=== PATIENT | female | born 1985 | race African-American/Black ===

== ENCOUNTER → 2016-11-16 | Outpatient (CLI) | payer OTHER ==
[2016-11-16 18:32] LABS: BASO % 0.5 % (0.0-1.0); EOS # 0.1 K/mm3 (0.0-0.50); EOS % 0.8 % (0.0-3.0); LARGE UNSTAINED CELL # 0.2 K/mm3 (0.0-0.4); LARGE UNSTAINED CELL % 2.6 % (0.0-4.0); LYMPH # 1.7 K/mm3 (1.5-4.5); LYMPH % 22.2 % (24.0-44.0); MEAN CORPUSCULAR HEMOGLOBIN 30.1 pg (27.0-33.0); MEAN CORPUSCULAR HGB CONC 32.4 g/dl (32.0-36.5); MONO # 0.7 K/mm3 (0.0-0.8); MONO % 8.7 % (0.0-5.0); NEUTROPHILS % 65.2 % (36.0-66.0); PLATELET COUNT, AUTOMATED 311 k/mm3 (150-450); RED CELL DISTRIBUTION WIDTH 11.9 % (11.5-14.5); WHITE BLOOD COUNT 7.7 K/mm3 (4.0-10.0)
[2016-11-18 11:00] LABS: HBsAg Prenatal NEGATIVE (NEGATIVE)
[2016-11-18 11:09] LABS: HIV SCREEN CENTAUR NEGATIVE (NEGATIVE)
== END ==
LOC: M WUC 13:04
PROVIDERS: ATTEND Specialist
DX: Z34.81 Encounter for supervision of other normal pregnancy, first trimester (principal)

== ENCOUNTER → 2017-02-06 | Outpatient (CLI) | payer OTHER ==
--- NOTE | 2017-02-07 03:50 | REP ---
Clinical: Anatomical evaluation. Comparison: None . Findings: Examination demonstrates a single live intrauterine in breech presentation. motion is identified by technologist. Placenta is noted posteriorly and grade zero without evidence for placenta previa or abruption. Amniotic fluid volume is normal. Cervix measures 4.1 cm in length and appears closed. No evidence for nuchal cord. Gestational age by current measurements 18 weeks 3 days with NABEEL 07/07/2017 . FHR equals 150 beats per minute. BPD 4.1 cm 18 weeks 3 days HC 15.6 cm 18 weeks 4 days AC 13.3 cm 18 weeks 6 days FL 2.8 cm 18 weeks for the HL 2.9 cm 19 weeks 2 days HC/AC ratio 1.17 Estimated weight 250 grams ( 54th percentile). Anatomical assessment demonstrates normal structures including cranium, choroid plexus, cavum, cerebellum/posterior fossa, nose/lips , lungs, four-chamber heart, diaphragm, stomach, cord insertion/three-vessel cord, kidneys/bladder, spine, and extremities. Limited evaluation of the facial profile and cardiac ventricular outflow tracts noted. Impression: 1. Single live intrauterine in breech presentation. 2. Anatomical limitations as described above may warrant reevaluation and follow-up. Remainder examination appears normal. Signed by Twan Escobedo MD 02/07/2017 03:42 A
== END ==
LOC: M SMT 12:59
PROVIDERS: ATTEND Specialist
DX: Z34.82 Encounter for supervision of other normal pregnancy, second trimester (principal); Z3A.19 19 weeks gestation of pregnancy

== ENCOUNTER → 2017-03-08 | Outpatient (CLI) | payer OTHER ==
[~2017-03-08] MED LIST: ALBU83IN INH; MOTR200T44 PO; PRENTAB9 PO; TYLE325T5 PO
--- NOTE | 2017-03-08 17:10 | REP ---
OB ULTRASOUND: Real-time sonographic evaluation of the gravid uterus is performed using transabdominal technique. There is a single living intrauterine gestation. The estimated gestational age is 22 weeks 5 days based on the first ultrasound. EDC 07/07/2017. Today's measurements indicate appropriate growth. BPD 52 mm = 21 weeks 5 days, at the 23rd percentile. HC 197 mm = 21 weeks 6 days, at the 26th percentile. AC 176 mm = 22 weeks 4 day, at the 46th percentile. Femur length 40 mm = 22 weeks 5 days, at the 50th percentile. HC/AC ratio 1.12 within normal range of 1.04-1.23. Estimated weight 510 grams at the 39th percentile. Cervix is closed measures and 3.3 cm in length. heart rate 153 beats per minute. SEEN/GROSSLY UNREMARKABLE Lateral ventricles Yes Posterior fossa Yes Upper lip Yes Four-chamber heart Yes LVOT Yes RVOT Yes Stomach Yes Cord insertion Yes Three vessel cord Yes Kidneys Yes Bladder Yes Spine Yes position: Breach. Placenta: Posterior and grade 1 with no previa or abruption. Amniotic fluid: Within normal limits. Signed by Conrad Irwin MD 03/09/2017 03:49 P
== END ==
LOC: M SMT 13:02
PROVIDERS: ATTEND Advanced Practice Midwife
DX: Z36 Encounter for antenatal screening of mother (principal)

== ENCOUNTER → 2017-05-10 | Outpatient (CLI) | payer OTHER ==
[2017-05-10 13:55] LABS: BASO % 0.4 % (0.0-1.0); EOS # 0.1 K/mm3 (0.0-0.50); EOS % 0.8 % (0.0-3.0); LARGE UNSTAINED CELL # 0.2 K/mm3 (0.0-0.4); LARGE UNSTAINED CELL % 1.9 % (0.0-4.0); LYMPH # 1.5 K/mm3 (1.5-4.5); LYMPH % 13.8 % (24.0-44.0); MEAN CORPUSCULAR HEMOGLOBIN 30.4 pg (27.0-33.0); MEAN CORPUSCULAR HGB CONC 33.6 g/dl (32.0-36.5); MEAN CORPUSCULAR VOLUME 90.5 fl (80.0-96.0); MONO # 0.8 K/mm3 (0.0-0.8); MONO % 7.5 % (0.0-5.0); NEUTROPHILS # 8.4 K/mm3 (1.8-7.7); NEUTROPHILS % 75.5 % (36.0-66.0); PLATELET COUNT, AUTOMATED 360 k/mm3 (150-450); RED CELL DISTRIBUTION WIDTH 12.5 % (11.5-14.5); WHITE BLOOD COUNT 11.1 K/mm3 (4.0-10.0)
== END ==
LOC: M SMT 08:34
PROVIDERS: ATTEND Advanced Practice Midwife
DX: Z34.83 Encounter for supervision of other normal pregnancy, third trimester (principal)

== ENCOUNTER → 2017-06-09 | Outpatient (REF) | payer OTHER | LOC: M LAB REF 17:04 | PROVIDERS: ATTEND Advanced Practice Midwife | DX: Z34.83 Encounter for supervision of other normal pregnancy, third trimester (principal) ==

== ENCOUNTER → 2019-04-29 | Outpatient (REF) | payer OTHER ==
[2019-04-29 16:08] LABS: ALBUMIN 3.5 GM/DL (3.2-5.2); ALT/SGPT 15 U/L (12-78); BILIRUBIN,TOTAL 0.3 MG/DL (0.2-1.0); BLOOD UREA NITROGEN 11 MG/DL (7-18); CALCIUM LEVEL 9.3 MG/DL (8.5-10.1); CARBON DIOXIDE LEVEL 28 MEQ/L (21-32); CHLORIDE LEVEL 107 MEQ/L (98-107); CREATININE FOR GFR 0.72 MG/DL (0.55-1.30); GLOMERULAR FILTRATION RATE > 60.0 (>60); GLUCOSE, FASTING 90 MG/DL (70-100); POTASSIUM SERUM 4.1 MEQ/L (3.5-5.1); RHEUMATOID FACTOR QUANT 39.4 IU/ML (<15.0); SODIUM LEVEL 143 MEQ/L (136-145); TOTAL PROTEIN 7.3 GM/DL (6.4-8.2)
[2019-04-29 16:53] LABS: HIV 1&2 SCREEN CENTAUR NEGATIVE (NEGATIVE)
[2019-05-02 00:07] LABS: ANTINUCLEAR ANTIBODIES DIRECT Negative (Negative); CYCLIC CITRULLINATED PEPTIDE > 250 units (0-19)
== END ==
LOC: M SFHCPLAZ 14:03
PROVIDERS: ATTEND Family Medicine
DX: M25.50 Pain in unspecified joint (principal); M25.40 Effusion, unspecified joint; Z11.3 Encounter for screening for infections with a predominantly sexual mode of transmission

== ENCOUNTER → 2019-08-09 | Outpatient (REF) | payer OTHER ==
[2019-08-09 12:57] LABS: HEPATITIS B SURFACE ANTIBODY POSITIVE (POSITIVE); HEPATITIS B SURFACE ANTIGEN NEGATIVE (NEGATIVE)
== END ==
LOC: M SFHCPLAZ 10:04
PROVIDERS: ATTEND Family Medicine
DX: M05.79 Rheumatoid arthritis with rheumatoid factor of multiple sites without organ or systems involvement (principal)
CPT/HCPCS: 36415; 86706; 87340; G0472

== ENCOUNTER → 2019-09-20 | Outpatient (REF) | payer OTHER ==
[2019-09-20 12:08] LABS: BASO # 0.1 10^3/uL (0.0-0.2); BASO % 0.8 % (0.0-1.0); EOS # 0.1 10^3/uL (0.0-0.5); EOS % 1.7 % (0.0-3.0); HEMOGLOBIN 13.7 g/dl (12.0-15.5); LYMPH # 1.5 10^3/uL (1.5-5.0); MEAN CORPUSCULAR HEMOGLOBIN 29.2 pg (27.0-33.0); MEAN CORPUSCULAR HGB CONC 31.1 g/dl (32.0-36.5); MEAN CORPUSCULAR VOLUME 93.8 fl (80.0-96.0); MONO # 0.6 10^3/uL (0.0-0.8); MONO % 10.4 % (0.0-5.0); NEUTROPHILS # 3.8 10^3/uL (1.5-8.5); NEUTROPHILS % 62.9 % (36.0-66.0); PLATELET COUNT, AUTOMATED 342 10^3/uL (150-450); RED BLOOD COUNT 4.69 10^6/uL (4.00-5.40)
[2019-09-20 12:19] LABS: ALBUMIN 3.7 GM/DL (3.2-5.2); ALT/SGPT 14 U/L (12-78); BILIRUBIN,TOTAL 0.2 MG/DL (0.2-1.0); BLOOD UREA NITROGEN 16 MG/DL (7-18); C REACTIVE PROTEIN QUANTITATIV 0.32 MG/DL (0.00-0.30); CARBON DIOXIDE LEVEL 27 MEQ/L (21-32); CHLORIDE LEVEL 111 MEQ/L (98-107); CREATININE FOR GFR 0.69 MG/DL (0.55-1.30); GLOMERULAR FILTRATION RATE > 60.0 (>60); GLUCOSE, FASTING 91 MG/DL (70-100); POTASSIUM SERUM 4.5 MEQ/L (3.5-5.1); RHEUMATOID FACTOR QUANT 64.6 IU/ML (<15.0); SODIUM LEVEL 142 MEQ/L (136-145); TOTAL PROTEIN 7.8 GM/DL (6.4-8.2)
[2019-09-20 12:38] LABS: ERYTHROCYTE SEDIMENTATION RATE 9 mm/hr (0-20)
[2019-09-20 13:39] LABS: CHLAMYDIA DNA AMPLIFICATION NEGATIVE (NEGATIVE); GC DNA AMPLIFICATION NEGATIVE (NEGATIVE)
== END ==
LOC: M SFHCPLAZ 08:53
PROVIDERS: ATTEND Family Medicine
DX: M05.79 Rheumatoid arthritis with rheumatoid factor of multiple sites without organ or systems involvement (principal); Z11.3 Encounter for screening for infections with a predominantly sexual mode of transmission

== ENCOUNTER → 2019-10-04 | Outpatient (REF) | payer OTHER ==
[2019-10-04 18:10] LABS: BASO % 0.7 % (0.0-1.0); EOS # 0.1 10^3/uL (0.0-0.5); EOS % 1.2 % (0.0-3.0); HEMATOCRIT 40.6 % (36.0-47.0); HEMOGLOBIN 12.9 g/dl (12.0-15.5); LYMPH # 1.6 10^3/uL (1.5-5.0); LYMPH % 27.1 % (24.0-44.0); MEAN CORPUSCULAR HEMOGLOBIN 29.5 pg (27.0-33.0); MEAN CORPUSCULAR HGB CONC 31.8 g/dl (32.0-36.5); MEAN CORPUSCULAR VOLUME 92.7 fl (80.0-96.0); MONO # 0.5 10^3/uL (0.0-0.8); MONO % 8.5 % (0.0-5.0); NEUTROPHILS # 3.7 10^3/uL (1.5-8.5); NEUTROPHILS % 62.3 % (36.0-66.0); PLATELET COUNT, AUTOMATED 341 10^3/uL (150-450); RED BLOOD COUNT 4.38 10^6/uL (4.00-5.40); WHITE BLOOD COUNT 5.9 10^3/uL (4.0-10.0)
[2019-10-04 18:21] LABS: ALT/SGPT 17 U/L (12-78); BILIRUBIN,TOTAL 0.3 MG/DL (0.2-1.0); BLOOD UREA NITROGEN 10 MG/DL (7-18); C REACTIVE PROTEIN QUANTITATIV 0.49 MG/DL (0.00-0.30); CALCIUM LEVEL 9.6 MG/DL (8.5-10.1); CARBON DIOXIDE LEVEL 27 MEQ/L (21-32); CHLORIDE LEVEL 106 MEQ/L (98-107); CREATININE FOR GFR 0.64 MG/DL (0.55-1.30); GLOMERULAR FILTRATION RATE > 60.0 (>60); GLUCOSE, FASTING 74 MG/DL (70-100); POTASSIUM SERUM 3.9 MEQ/L (3.5-5.1); SODIUM LEVEL 142 MEQ/L (136-145)
[2019-10-04 18:44] LABS: ERYTHROCYTE SEDIMENTATION RATE 14 mm/hr (0-20)
[2019-10-08 00:06] LABS: ANA (HEP2) Positive (.); HEPATITIS B CORE ANTIBODY IGG Negative (Negative)
== END ==
LOC: M SFHCRHEU 15:55
PROVIDERS: ATTEND Internal Medicine
DX: M05.79 Rheumatoid arthritis with rheumatoid factor of multiple sites without organ or systems involvement (principal)

== ENCOUNTER → 2020-01-15 | Outpatient (CLI) | payer OTHER ==
[~2020-01-15] MED LIST changes: +ACET-683 PO; +FOLI1TAB11 PO; +METH2.5T48 PO; +ONDA-83 PO; +POTA10TA17 PO; +PRED10TA2 PO; +PRED5TA PO; +PROTPAK PO; +VENTAER INH
[2020-01-15 12:30] LABS: BASO % 0.2 % (0.0-1.0); HEMATOCRIT 35.7 % (36.0-47.0); HEMOGLOBIN 11.8 g/dl (12.0-15.5); LYMPH # 0.6 10^3/uL (1.5-5.0); MEAN CORPUSCULAR HEMOGLOBIN 29.9 pg (27.0-33.0); MEAN CORPUSCULAR HGB CONC 33.1 g/dl (32.0-36.5); MEAN CORPUSCULAR VOLUME 90.6 fl (80.0-96.0); MONO # 0.5 10^3/uL (0.0-0.8); NEUTROPHILS # 14.6 10^3/uL (1.5-8.5); NEUTROPHILS % 92.1 % (36.0-66.0); PLATELET COUNT, AUTOMATED 460 10^3/uL (150-450); RED BLOOD COUNT 3.94 10^6/uL (4.00-5.40); WHITE BLOOD COUNT 15.8 10^3/uL (4.0-10.0)
[2020-01-15 12:57] LABS: ALBUMIN 2.9 GM/DL (3.2-5.2); ALT/SGPT 19 U/L (12-78); AMYLASE 24 U/L (25-115); BILIRUBIN,TOTAL 0.6 MG/DL (0.2-1.0); BLOOD UREA NITROGEN 5 MG/DL (7-18); CALCIUM LEVEL 8.6 MG/DL (8.5-10.1); CARBON DIOXIDE LEVEL 25 MEQ/L (21-32); CHLORIDE LEVEL 102 MEQ/L (98-107); GLOMERULAR FILTRATION RATE > 60.0 (>60); GLUCOSE, FASTING 96 MG/DL (70-100); POTASSIUM SERUM 2.9 MEQ/L (3.5-5.1); SODIUM LEVEL 137 MEQ/L (136-145); TOTAL PROTEIN 7.8 GM/DL (6.4-8.2)
--- NOTE | 2020-01-16 02:48 | REP ---
Clinical: Abdominal pain and hematuria. Fever. Nausea. Technique: Supine and upright views of the abdomen and pelvis. Findings: Supine and upright views of the abdomen and pelvis demonstrate nonspecific bowel gas pattern. No organomegaly. No obvious abnormal calcifications. Skeletal structures are intact. Impression: Normal nonspecific abdominal radiographs. Electronically Signed by Twan Escobedo MD 01/16/2020 02:39 A
== END ==
LOC: M WUC 09:58
PROVIDERS: ATTEND Physician Assistant
DX: R11.0 Nausea (principal); R31.9 Hematuria, unspecified; R50.9 Fever, unspecified
CPT/HCPCS: 36415; 74019; 80053; 82150; 85025; 87086; U0003

== ENCOUNTER → 2020-01-15 | Outpatient (CLI) | payer OTHER ==
--- NOTE | 2020-01-16 02:58 | REP ---
Clinical: Multifocal rheumatoid arthritis with positive rheumatoid factor. Technique: PA and lateral. Comparison: None. Findings: Bilateral lower lobe infiltrates suggest acute / chronic pneumonia and atelectasis. No effusion. No pneumothorax. Skeletal structures are intact. Mediastinum and cardiac silhouette are normal. Impression: Moderate bilateral lower lobe infiltrates. Follow-up to resolution is recommended. Electronically Signed by Twan Escobedo MD 01/16/2020 02:49 A
== END ==
LOC: M WUC 10:08
PROVIDERS: ATTEND Family Medicine
DX: M05.79 Rheumatoid arthritis with rheumatoid factor of multiple sites without organ or systems involvement (principal); R91.8 Other nonspecific abnormal finding of lung field

== ENCOUNTER 2020-01-16 09:06 | Inpatient (IN) | payer OTHER ==
[~2020-01-16] VITALS: Ht 165.1 cm; Wt 75.0 kg
[2020-01-16] MEDS: FOLIC ACID 1 MG TAB PO SCH (09:00)
[~2020-01-16 09:06] MED LIST changes: -ACET-683 PO; -FOLI1TAB11 PO; -METH2.5T48 PO; -ONDA-83 PO; -POTA10TA17 PO; -PRED10TA2 PO; -PRED5TA PO; -PROTPAK PO; -VENTAER INH
[2020-01-16] MEDS ORDERED: METH2.5T48 PO (09:16)
[2020-01-16] MEDS ORDERED: POTA10TA17 PO (09:16)
[2020-01-16] MEDS ORDERED: ONDA-83 PO (09:16)
[2020-01-16] MEDS ORDERED: ONDANSETRON 4MG/2ML VIAL IV ONE (10:15)
[2020-01-16] MEDS ORDERED: NS 1,000 ML IV ONE (10:45)
[2020-01-16] MEDS ORDERED: cefTRIAXone SOD 1 GM in D5W MINI-BAG PLUS 50 ML IV ONE (10:45)
[2020-01-16 10:48] LABS: BASO % 0.2 % (0.0-1.0); HEMOGLOBIN 11.3 g/dl (12.0-15.5); LYMPH # 0.8 10^3/uL (1.5-5.0); LYMPH % 4.6 % (24.0-44.0); MEAN CORPUSCULAR HEMOGLOBIN 28.9 pg (27.0-33.0); MEAN CORPUSCULAR HGB CONC 32.3 g/dl (32.0-36.5); MEAN CORPUSCULAR VOLUME 89.5 fl (80.0-96.0); MONO # 0.4 10^3/uL (0.0-0.8); MONO % 2.4 % (0.0-5.0); NEUTROPHILS # 16.9 10^3/uL (1.5-8.5); NEUTROPHILS % 92.3 % (36.0-66.0); PLATELET COUNT, AUTOMATED 477 10^3/uL (150-450); RED BLOOD COUNT 3.91 10^6/uL (4.00-5.40); WHITE BLOOD COUNT 18.3 10^3/uL (4.0-10.0)
[2020-01-16 11:05] LABS: BLOOD UREA NITROGEN 3 MG/DL (7-18); CALCIUM LEVEL 8.9 MG/DL (8.5-10.1); CARBON DIOXIDE LEVEL 29 MEQ/L (21-32); CHLORIDE LEVEL 101 MEQ/L (98-107); CREATININE FOR GFR 0.56 MG/DL (0.55-1.30); GLOMERULAR FILTRATION RATE > 60.0 (>60); GLUCOSE, FASTING 95 MG/DL (70-100); POTASSIUM SERUM 3.5 MEQ/L (3.5-5.1); SODIUM LEVEL 139 MEQ/L (136-145)
[2020-01-16] MEDS ORDERED: ALBUTEROL 90 MCG/ACT 8GM HFA INHALER INH ONE (12:30)
[2020-01-16] MEDS ORDERED: ONDANSETRON 4MG/2ML VIAL IV PRN (14:15)
[2020-01-16] MEDS ORDERED: IPRATROPIUM 0.5MG/ALBUTEROL 2.5MG INH SOL UD 3ML (DUONEB)(J7620) NEB PRN (14:15)
[2020-01-16] MEDS ORDERED: ACET-683 PO (14:21)
[2020-01-16] MEDS ORDERED: FOLI1TAB11 PO (14:21)
[2020-01-16] MEDS ORDERED: VENTAER INH (14:21)
[2020-01-16] MEDS ORDERED: PRED5TA PO (14:21)
--- NOTE | 2020-01-16 15:05 | HPEPDOC ---
[facility] Medical History & Physical Date of Admission January 16, 2020 Date of Service: January 16, 2020 Primary Care Physician: JENNI ORTIZ MD Attending Physician: SHANTE RICE MD History and Physical CHIEF COMPLAINT: fever, SOB, malaise HISTORY OF PRESENT ILLNESS: Darling Mohan is a 34 YO F with history of asthma and rheumatoid arthritis (on Methotrexate) who presents to the ED with 3 days of nausea, vomiting, fevers, chills, shortness of breath. She reports that her symptoms started with malaise and overall feeling of "achiness" then progressed to shortness of breath, dry cough and fevers. She states that she has been vomiting continuously during this time and unable to keep any food down. She has not had any recent illnesses and has reportedly been self-isolating in her home. Her does work outside the home and she has 2 young children in the house. She went to urgent care yesterday and underwent group B strep screen which was negative, chest x-ray, which was found to have bilateral infiltrates, and rapid flu screen which was also negative. A COVID-19 test was done and is pending. She was given 1 dose of IV Rocephin. Notably, she was found to have blood in her urine. She denies any urinary symptoms at this time. PAST MEDICAL HISTORY: Asthma. Rheumatolid Arthritis (on Methotrexate, follows with Rheumatology) Depression. Anxiety. PAST SURGICAL HISTORY: None SOCIAL HISTORY: Former cigarette smoker, now smokes CBD oil. Occasional alcohol use Denies any other drugs. Lives at home with her boyfriend and 2 children. FAMILY HISTORY: Father: alive, No known medical problems Mother: alive, HLD, HTN, diverticulitis Siblings: alive, sister has depression Maternal Grand Mother: breast cancer diagnosed in late 40s 3 brother(s) , 1 sister(s) - healthy. 1 son(s) , 1 daughter(s) - healthy. Denies known family history of colon, uterus, or ovarian cancer Maternal Grandmother- [place], Rheumatoid Arthritis. ALLERGIES: Please see below. REVIEW OF SYSTEMS: CONSTITUTIONAL: Reports fevers, chills, nausea, vomiting, generalized achiness over the past 3 days EYES: Denies visual changes, double vision, blurry vision, floaters, or feeling like a curtain pulled down. ENT: Denies runny nose, epistaxis, sinus pain, tinnitus, sore throat, or o dynophasia CARDIOVASCULAR: Denies chest pain, shortness of breath, paroxysmal nocturnal dyspnea, orthopnea, edema, or palpitations. RESPIRATORY: Reports cough, shortness of breath, difficulty breathing GASTROINTESTINAL: Nausea, vomiting, diarrhea 3 days GENITOURINARY: Denies hematuria, polyuria, dysuria, hesitancy, or dribbling MSK: Denies joint swelling, decreased range of motion, crepitus, or new arthritis INTEGUMENTARY: Denies pruritus, rashes, or lesions NEUROLOGY: Denies any changes to sight/smell/hearing/taste, seizures, faint, headaches, paresthesias, anesthesias PSYCHIATRIC: Denies depression, anxiety, paranoia, anhedonia, or episodes of abimael ENDOCRINE: Denies diarrhea, increased appetite, tremor, palpitations, constipation, dry skin, polydipsia, polyuria, polyphagia HEMATOLOGIC: Denies any anemia, purpura, or petechiae LYMPHATIC: Denies any new lumps or bumps anywhere HOME MEDICATIONS: Please see below. PHYSICAL EXAMINATION: VITAL SIGNS: Please see below. GENERAL APPEARANCE: Sitting up in bed, appears stated age, somewhat tremulous and anxious, cooperative HEENT: EOMI, PERRLA, neck is supple with no thyromegaly or lymphadenopathy RESPIRATORY: Lungs are clear to auscultation bilaterally with no adventitious breath sounds appreciated CARDIOVASCULAR: no JVD, tachycardic,no murmurs/rubs/gallops, normal S1 and S2 ABDOMEN: +BS, soft, nontender to palpation in all four quadrants, no masses/organomegaly EXTREMITIES: no clubbing, cyanosis or edema noted NEUROLOGICAL: CN 2-12 intact, No obvious focal deficits PSYCHIATRIC: normal mood/affect Skin: No rashes or ulcers appreciated, warm and well-perfused LN: No significant cervical or inguinal lymphadenopathy RHEUMATOLOGIC: no joint swelling LABORATORY DATA: See below. IMAGING: CXR performed yesterday at : IMPRESSION: Findings: Bilateral lower lobe infiltrates suggest acute / chronic pneumonia and atelectasis. No effusion. No pneumothorax. Skeletal structures are intact. Mediastinum and cardiac silhouette are normal. Impression: Moderate bilateral lower lobe infiltrates. Follow-up to resolution is recommended. MICROBIOLOGY: Please see below. ASSESSMENT: This is a 34-year-old female with rheumatoid arthritis on methotrexate with 3 days, fever, chills, shortness of breath and nausea/vomiting , found to have leukocytosis, hypokalemia, and concern for community-acquired pneumonia versus rheumatoid lung involvement vs COVID-19 infection. PLAN: 1. PNA: -Empiric Azithromycin, Rocephin -Sputum culture pending -Procalcitonin pending -CT chest ordered -Continuous pulse oximetry, titrate for O2 >90% -IVF NS 100cc/hr -DuoNebs Q6h PRN 2. Nausea/vomiting: -Zofran ordered -IVF -Potassium replaced 3. Rheumatoid Arthritis: -Holding Methotrexate for time being -Continue home Folic acid 4. Hx hematuria: -UA ordered DVT ppx: none Attending attestation: I evaluated and examined the patient in person; I discussed the care with Resident in detail and agree with the plan above. Vital Signs Vital Signs Date Time Temp Pulse Resp B/P (MAP) Pulse Ox O2 Delivery O2 Flow Rate FiO2 01/16/20 13:32 102 24 94 Nasal Cannula 2.0 01/16/20 10:31 01/16/20 09:06 99.2 Laboratory Data Labs 24H Laboratory Tests 2 01/16/20 10:27: Immature Granulocyte % (Auto) 0.5, Neutrophils (%) (Auto) 92.3H, Lymphocytes (%) (Auto) 4.6L, Monocytes (%) (Auto) 2.4, Eosinophils (%) (Auto) 0.0, Basophils (%) (Auto) 0.2, Neutrophils # (Auto) 16.9H, Lymphocytes # (Auto) 0.8L, Monocytes # (Auto) 0.4, Eosinophils # (Auto) 0.0, Basophils # (Auto) 0.0, Nucleated Red Blood Cells % (auto) 0.0, Anion Gap 9, Glomerular Filtration Rate > 60.0, Calcium Level 8.9 CBC/BMP Laboratory Tests 01/16/20 10:27 Home Medications Scheduled Folic Acid (Folic Acid) 1 Mg Tablet, 1 MG PO DAILY Pantoprazole Sodium (Protonix) 40 Mg Granpkt.dr, 40 MG PO DAILY Prednisone (Prednisone) 5 Mg Tablet, 5 MG PO QPM Start After Tapering Dose. 5 mg PO QPM Prednisone (Prednisone) 10 Mg Tablet, 10 MG PO TAPER Take 5 tabs qd x3 days, then 4 tabs qd x3 days, then 3 tabs qd x3 days, then 2 tab qd x3 days, then 1 tab qd x3 days, stop Scheduled PRN Acetaminophen (Acetaminophen) 500 Mg Tablet, 500 MG PO Q4H PRN for PAIN Albuterol Sulfate (Ventolin Hfa) 18 Gm Hfa.aer.ad, 2 PUFF INH Q4-6HP PRN for wheezing Ibuprofen (Motrin Ib) 200 Mg Tab, 800 MG PO Q8HP PRN for MODERATE PAIN (PS 5-7) Ondansetron HCl (Ondansetron HCl) 4 Mg Tablet, 4 MG PO Q8H PRN for NAUSEA OR VOMITING Allergies Coded Allergies: No Known Allergies (Verified , 05/08/15) A-FIB/CHADSVASC A-FIB History Current/History of A-Fib/PAF?: No Current PO Anticoag Therapy: No GME ATTESTATION GME ATTESTATION My faculty preceptor for this patient encounter was physically present during the encounter and was fully available. All aspects of the patient interview, examination, medical decision making process, and medical care plan development were reviewed and approved by the faculty preceptor. The faculty preceptor is aware and concurs with the plan as stated in the body of this note and will attest to such by his/her cosignature. KIRK SWANSON MD January 16, 2020 14:20 SHANTE RICE MD Jan 22, 2020 20:40
[2020-01-16] MEDS ORDERED: POTASSIUM CHLORIDE 10 MEQ SR TABLET PO ONE (15:15)
[2020-01-16] MEDS: ACETAMINOPHEN TAB 650MG DOSE (2X325MG) PO PRN ×2 (16:34→23:50)
[2020-01-16 17:26] VITALS: BP 111/64
--- NOTE | 2020-01-16 17:58 | REP ---
CT CHEST WITHOUT IV CONTRAST: CT chest performed without IV contrast. Sagittal and coronal reconstruction images are performed. There are dense patchy infiltrates in both lower lobes. Lesser degree of scattered patchy infiltrates are seen in the upper lobes. Heart is not enlarged. There is no pericardial effusion. There appear to be very tiny pleural effusions. No gross mediastinal or axillary adenopathy is seen. There is no thoracic aortic aneurysm. Visualized upper abdominal structures are grossly unremarkable. IMPRESSION: Diffuse patchy infiltrates bilaterally, more significantly in the lower lobes. Electronically Signed by Conrad Irwin MD 01/17/2020 10:10 A
[2020-01-16] MEDS: AZITHROMYCIN INJ 500 MG, VIAL MATE ADAPTER 1 EACH in D5W 250 ML IV SCH (18:02)
[2020-01-16] MEDS: NS 1,000 ML IV SCH (18:03)
[2020-01-16] MEDS ORDERED: ALBUTEROL 90 MCG/ACT 8GM HFA INHALER INH PRN (18:15)
[2020-01-16 20:00] VITALS: BP 104/55
[2020-01-16] MEDS: ALBUTEROL 90 MCG/ACT 8GM HFA INHALER INH SCH ×2 (20:28→23:14)
[2020-01-17] VITALS: BP 116/59
[2020-01-17] MEDS: NS 1,000 ML IV SCH ×2 (01:00→05:24)
[2020-01-17] MEDS ORDERED: ASPIRIN 325 MG TAB PO ONE (02:00)
[2020-01-17 03:16] LABS: HEMOGLOBIN 10.2 g/dl (12.0-15.5); RED BLOOD COUNT 3.46 10^6/uL (4.00-5.40); WHITE BLOOD COUNT 18.1 10^3/uL (4.0-10.0)
[2020-01-17 03:17] LABS: MEAN CORPUSCULAR HEMOGLOBIN 29.5 pg (27.0-33.0); MEAN CORPUSCULAR HGB CONC 32.9 g/dl (32.0-36.5); MEAN CORPUSCULAR VOLUME 89.6 fl (80.0-96.0); PLATELET COUNT, AUTOMATED 422 10^3/uL (150-450)
[2020-01-17 03:35] LABS: BLOOD UREA NITROGEN 3 MG/DL (7-18); CREATININE FOR GFR 0.55 MG/DL (0.55-1.30); GLOMERULAR FILTRATION RATE > 60.0 (>60); GLUCOSE, FASTING 119 MG/DL (70-100)
[2020-01-17 03:37] LABS: CALCIUM LEVEL 8.1 MG/DL (8.5-10.1); CARBON DIOXIDE LEVEL 29 mmol/L (20-29); CHLORIDE LEVEL 105 MEQ/L (98-107); MAGNESIUM LEVEL 1.8 MG/DL (1.8-2.4); POTASSIUM SERUM 2.9 MEQ/L (3.5-5.1); SODIUM LEVEL 140 MEQ/L (136-145)
[2020-01-17 03:46] LABS: CK-MB VALUE MASS < 1.0 NG/ML (<3.6); CPK CREATINE PHOSPHOKINASE 80 U/L (26-192); MB/CK RELATIVE INDEX 1.25 (< OR =4); TROPONIN I < 0.02 NG/ML (< 0.10)
[2020-01-17 04:00] VITALS: BP 114/50
[2020-01-17] MEDS: POTASSIUM CHLORIDE 10 MEQ SR TABLET PO SCH ×2 (05:16→08:31)
[2020-01-17] MEDS: KCL 10MEQ/100ML SWI (KRUN) 10 MEQ in IV 1 EA IV SCH ×2 (05:16→06:27)
[2020-01-17 07:20] VITALS: BP 134/70
[2020-01-17 07:58] LABS: ABG BASE EXCESS 3.7 (-2.0-2.0); ABG HCO3 23.6 MEQ/L (22.0-26.0); ABG PARTIAL PRESSURE CO2 22.8 mmHg (35.0-45.0); ABG PARTIAL PRESSURE O2 87.6 mmHg (75.0-100.0); ABG STANDARD HCO3 27.8 MEQ/L (22.0-26.0); ABG TOTAL CO2 24.3 MEQ/L (22.0-29.0)
[2020-01-17 07:59] LABS: ABG pH (ARTERIAL) 7.633 UNITS (7.350-7.450)
[2020-01-17] MEDS: ALBUTEROL 90 MCG/ACT 8GM HFA INHALER INH SCH (08:08)
[2020-01-17] MEDS ORDERED: ALPRAZolam 0.5 MG TAB PO ONE ×2 (08:15→17:00)
--- NOTE | 2020-01-17 08:22 | REP ---
PORTABLE CHEST X-RAY: Sitting AP view. HISTORY: Increased shortness of breath. COVID precautions. Comparison study January 15, 2020. FINDINGS: The previously noted bibasilar interstitial infiltrates have progressed in extent and opacity in the interval since the chest x-ray done 2 days prior consistent with progressive bilateral pneumonia. Cardiomediastinal silhouette is unchanged. Monitoring electrodes and oxygen delivery tubing are seen. IMPRESSION: Progressive bilateral pneumonia. Extensive infiltrates, lung base predominant. Electronically Signed by Jose Fowler MD 01/17/2020 09:12 A
[2020-01-17] MEDS: FOLIC ACID 1 MG TAB PO SCH (08:31)
[2020-01-17] MEDS: cefTRIAXone SOD 1 GM in D5W MINI-BAG PLUS 50 ML IV SCH (11:10)
[2020-01-17] MEDS: IPRATROPIUM 0.5MG/ALBUTEROL 2.5MG INH SOL UD 3ML (DUONEB)(J7620) NEB SCH ×2 (11:36→19:38)
[2020-01-17 12:00] VITALS: BP 125/57
[2020-01-17] MEDS ORDERED: SLF 3 ML SYR IV PRN (12:15)
[2020-01-17 12:34] LABS: MAGNESIUM LEVEL 1.8 MG/DL (1.8-2.4); POTASSIUM SERUM 3.9 MEQ/L (3.5-5.1)
[2020-01-17] MEDS: SLF 3 ML SYR IV SCH ×2 (14:00→20:11)
[2020-01-17 16:00] VITALS: BP 131/60
[2020-01-17] MEDS: AZITHROMYCIN INJ 500 MG, VIAL MATE ADAPTER 1 EACH in D5W 250 ML IV SCH (16:31)
[2020-01-17 20:00] VITALS: BP 118/54
[2020-01-17] MEDS: ACETAMINOPHEN TAB 650MG DOSE (2X325MG) PO PRN (20:11)
--- NOTE | 2020-01-17 21:48 | IPNPDOC ---
Date Seen The patient was seen on 01/17/20. Progress Note SUBJECTIVE: Hospital stay. Team was urgently called the that side near beginning of shift by nursing because patient's respiratory status was worsening, she was tachycardic, unable to speak full sentences, experiencing both traditional chest pain and pleuritic chest pain. She had rapid, shallow breaths, yet her lungs sounded clear on exam. A portable chest x-ray was relatively unchanged from yesterday's chest CT study. ABG showed respiratory alkalosis due to significant hyperventilation most likely secondary to profound anxiety. Scheduled DuoNeb's were ordered, she was placed on a Venturi mask, and also given a one-time dose of 0.5 mg Xanax. Cardiac troponins and EKG have been done only a few hours earlier and were relatively unremarkable. After a negative Covid test result became known, she was subsequently transferred to the PCU. Upon recheck later in the afternoon while in the PCU, she was speaking full sentences and breathing more deeply. She continued to endorse pleuritic chest pain causing her to have diminished tidal volume, as well as productive cough of whitish sputum. She continued to be very anxious and was instructed to focus on breathing with her abdomen as well as chest, taking oliveros more deliver breaths. At time of recheck, she endorsed cold intolerance, but her traditional chest pain had dissipated. She also denied any fever, palpitations, abdominal pain, nausea, vomiting, or diarrhea. OBJECTIVE PHYSICAL EXAMINATION: VITAL SIGNS: Please see below. GENERAL: Quite anxious young female lying upright in bed, wearing nasal cannula. Supplemental bassett. Alert and oriented 3. Mild respiratory distress. HEENT: Normocephalic, atraumatic. Noninjected, anicteric sclera. Trach is midline. CARDIOVASCULAR: Tachycardic, regular rhythm. +S1, S2 with no murmurs, gallops or rubs appreciated. RESPIRATORY: Still tachypneic, but overall RR decreased from this morning. Continued rapid shallow breathing with moderate accessory muscle use. When prompted, she is able to incorporate more of abdomen and execute deeper breaths. Bilateral inspiratory crackles with symmetric chest expansion. Diminished tidal volume. Breathing via nasal cannula. Speaking full sentences. ABDOMINAL: Soft, nondistended. Left lower quadrant tenderness. Hypoactive bowel sounds throughout. Mild voluntary guarding with no rigidity. EXTREMITIES: 2+ radial and posterior tibial pulses bilaterally. Lower extremities free of edema. NEUROLOGICAL: Awake, alert and oriented 3. No focal neurologic deficits appreciated. Non-dysarthric speech. PSYCHOLOGICAL: Remains quite anxious and tearful at times. LABORATORY DATA, IMAGING STUDIES, MICROBIOLOGY: Please see below. ASSESSMENT AND PLAN: This is a 34-year-old female with rheumatoid arthritis on methotrexate with 3 days, fever, chills, shortness of breath and nausea/vomiting, found to have leukocytosis, hypokalemia, and concern for community-acquired pneumonia versus rheumatoid lung involvement vs COVID-19 infection. #Multifocal pneumonia -Etiology currently unknown, but more likely bacterial than viral: Elevated white blood cell count with left shift and neutrophil predominance; febrile on presentation; -Outpatient covid test returned negative this morning -Continue with empiric ceftriaxone and azithromycin both are on day 2 of administration -Atypicals ordered yesterday with results pending -Continuous pulse ox; oxygen titration > 90% -continue with combo of venturi mask and NC for oxygenation -Scheduled DuoNeb's added q4h; c/w prn duonebs q2h -Pro calcitonin pending -Sputum culture pending -Likely not rheumatoid/methotrexate lung as patient does not have diffuse bilateral opacities that are characteristic of hypersensitivity pneumonitis -pt instructed multiple times on ways to deepen breaths and slow RR #Rheumatoid arthritis -continue to hold methotrexate -home folic acid contd -Likely not rheumatoid/methotrexate lung as patient does not have diffuse bilateral opacities that are characteristic of hypersensitivity pneumonitis #Hypokalemia -sK 2.9 early this morning that improved to 3.9 after two, 10 mEq KCl runs and 40mg PO KCl; sMg 1.8 -f/u on repeat metabolic panels Disposition: Pending improved depth of breathing with less oxygen requirements Attending attestation: I evaluated and examined the patient in person; I discussed the care with Resident in detail and agree with the plan above. VS, I&O, 24H, Fishbone Vital Signs/I&O Vital Signs Date Time Temp Pulse Resp B/P (MAP) Pulse Ox O2 Delivery O2 Flow Rate FiO2 01/17/20 19:39 Venturi Mask 8.0 31 01/17/20 16:00 99.4 113 20 131/60 (83) 91 I&O- Last 24 Hours up to 6 AM 01/17/20 06:00 Intake Total 3255 ml Output Total 300 ml Balance 2955 ml Laboratory Data 24H LABS Laboratory Tests 2 01/17/20 02:18: Nucleated Red Blood Cells % (auto) 0.0, Anion Gap 6L, Glomerular Filtration Rate > 60.0, Calcium Level 8.1L, Magnesium Level 1.8, Total Creatine Kinase 80, Creatine Kinase MB < 1.0, Creatine Kinase MB Relative Index 1.25, Troponin I < 0.02, Procalcitonin 0.18 01/17/20 03:32: 01/17/20 07:45: Blood Gas Bicarbonate Standard 27.8H, Arterial Blood pH 7.633*H, Arterial Blood Partial Pressure CO2 22.8L, Arterial Blood Partial Pressure O2 87.6, Arterial Blood Total CO2 24.3, Arterial Blood HCO3 23.6, Arterial Blood Base Excess 3.7H, Arterial Blood Oxygen Saturation 98.0 01/17/20 07:50: Bedside Glucose (Misc Panel) 127H 01/17/20 11:46: Magnesium Level 1.8 CBC/BMP Laboratory Tests 01/17/20 02:18 01/17/20 11:46 Microbiology Microbiology 01/17/20 Respiratory Virus Panel (PCR) ([facility]) - Final, Complete 01/16/20 Blood Culture - Preliminary, Resulted No growth after 24 hours . All specim... 01/16/20 Blood Culture - Preliminary, Resulted No growth after 24 hours . All specim... 01/16/20 Urine Culture - Final, Complete 01/16/20 Gram Stain - Final, Resulted 01/16/20 Sputum Culture, Resulted Pending ANCELMO MEEK D.O. January 17, 2020 21:48 SHANTE RICE MD Jan 22, 2020 21:39
--- NOTE | 2020-01-17 22:14 | ECGEPIP ---
[facility] Test Date: 2020-01-17 Pat Name: PAULIE MANLEY Department: Room: [place] [address] Gender: Female Compounding Pharmacy Technician: : [id number] Requested By: KIRK SWANSON Order Number: [id number] Reading MD: Hermilo Schuster Measurements Intervals [place] Rate: 119 P: 40 HI: 158 QRS: 15 QRSD: 85 T: 2 QT: 339 QTc: 478 Interpretive Statements SINUS TACHYCARDIA POSSIBLE LEFT ATRIAL ENLARGEMENT NONSPECIFIC ST & T-WAVE ABNORMALITY No prior ECG available for comparison at the time of interpretation. Electronically Signed on 01-17-2020 22:14:35 EDT by Hermilo Schuster
[2020-01-18] VITALS (11 sets, daily range): BP systolic 112–130; BP diastolic 58–69; O2SAT 92–95
[2020-01-18] MEDS: IPRATROPIUM 0.5MG/ALBUTEROL 2.5MG INH SOL UD 3ML (DUONEB)(J7620) NEB SCH ×3 (00:08→07:21)
[2020-01-18] MEDS ORDERED: PERCOCET 5MG/325MG TAB PO ONE (00:30)
[2020-01-18 00:38] LABS: ABG BASE EXCESS 4.6 (-2.0-2.0); ABG HCO3 27.2 MEQ/L (22.0-26.0); ABG O2 SATURATION 92.8 % (95.0-99.0); ABG PARTIAL PRESSURE CO2 33.2 mmHg (35.0-45.0); ABG PARTIAL PRESSURE O2 61.4 mmHg (75.0-100.0); ABG STANDARD HCO3 28.5 MEQ/L (22.0-26.0); ABG TOTAL CO2 28.2 MEQ/L (22.0-29.0); ABG pH (ARTERIAL) 7.531 UNITS (7.350-7.450)
--- NOTE | 2020-01-18 00:54 | REPVR ---
PROCEDURE INFORMATION: Exam: XR Chest, 1 View Exam date and time: 01/18/2020 12:29 AM Age: 34 years old Clinical indication: Other: SOB TECHNIQUE: Imaging protocol: XR of the chest Views: 1 view. COMPARISON: GA Chest, 1 view 01/17/2020 7:50 AM FINDINGS: Lungs: Increasing patchy opacities in the mid and lower lungs bilaterally consistent with significant interval worsening pneumonitis. Pleural space: No pleural effusion. No pneumothorax is seen. Heart/Mediastinum: Unremarkable. No cardiomegaly. Bones/joints: Unremarkable. IMPRESSION: Significant interval worsening of pneumonitis. Electronically signed by: Darlene Ervin On 01/18/2020 00:53:27 AM
[2020-01-18] MEDS ORDERED: methylPREDNISolone INJ 125 MG/2 ML VIAL (J2930) IV ONE (01:15)
[2020-01-18 05:16] LABS: HEMATOCRIT 30.6 % (36.0-47.0); HEMOGLOBIN 10.2 g/dl (12.0-15.5); MEAN CORPUSCULAR HEMOGLOBIN 29.7 pg (27.0-33.0); MEAN CORPUSCULAR HGB CONC 33.3 g/dl (32.0-36.5); MEAN CORPUSCULAR VOLUME 89.2 fl (80.0-96.0); PLATELET COUNT, AUTOMATED 449 10^3/uL (150-450); RED BLOOD COUNT 3.43 10^6/uL (4.00-5.40); WHITE BLOOD COUNT 22.5 10^3/uL (4.0-10.0)
[2020-01-18 05:28] LABS: BLOOD UREA NITROGEN 4 MG/DL (7-18); CALCIUM LEVEL 8.2 MG/DL (8.5-10.1); CARBON DIOXIDE LEVEL 29 MEQ/L (21-32); CHLORIDE LEVEL 105 MEQ/L (98-107); CREATININE FOR GFR 0.44 MG/DL (0.55-1.30); GLOMERULAR FILTRATION RATE > 60.0 (>60); GLUCOSE, FASTING 135 MG/DL (70-100); POTASSIUM SERUM 3.7 MEQ/L (3.5-5.1); SODIUM LEVEL 143 MEQ/L (136-145)
[2020-01-18] MEDS: SLF 3 ML SYR IV SCH ×3 (06:14→21:18)
[2020-01-18] MEDS ORDERED: methylPREDNISolone INJ 125 MG/2 ML VIAL (J2930) IV SCH (07:00)
[2020-01-18] MEDS: FOLIC ACID 1 MG TAB PO SCH (08:04)
[2020-01-18] MEDS ORDERED: MAG SULF 1GM/100ML (MAG RUN) 1 GM in IV 1 EA IV ONE (09:00)
[2020-01-18] MEDS: KCL 10MEQ/100ML SWI (KRUN) 10 MEQ in IV 1 EA IV SCH ×2 (10:14→12:00)
[2020-01-18 11:08] LABS: INR 1.44; PROTHROMBIN TIME 17.3 SECONDS (11.8-14.0)
[2020-01-18 11:09] LABS: PARTIAL THROMBOPLASTIN TIME 35.8 SECONDS (25.0-38.4)
[2020-01-18 11:11] LABS: D-DIMER QUANT 2743.06 ng/ml (<500)
[2020-01-18 11:17] LABS: ALT/SGPT 26 U/L (12-78); BILIRUBIN,DIRECT 0.2 MG/DL (0.0-0.2); BILIRUBIN,TOTAL 0.4 MG/DL (0.2-1.0); CPK CREATINE PHOSPHOKINASE 36 U/L (26-192); FERRITIN 343 NG/ML (8-252); IMMUNOGLOBULIN G 1250 MG/DL (681-1648); LDH LACTATE DEHYDROGENASE 441 U/L (84-246); TROPONIN I < 0.02 NG/ML (< 0.10)
[2020-01-18 11:54] LABS: THYROID STIMULATING HORMONE 0.536 uIU/ML (0.358-3.740)
[2020-01-18] MEDS: cefTRIAXone SOD 1 GM in D5W MINI-BAG PLUS 50 ML IV SCH (13:31)
[2020-01-18] MEDS: COMBIVENT RESPIMAT 100-20MCG INHALER 4GM INH SCH ×4 (13:41→23:48)
[2020-01-18] MEDS: hydrOXYzine 25 MG TAB PO PRN (14:18)
[2020-01-18 14:44] LABS: MAGNESIUM LEVEL 2.6 MG/DL (1.8-2.4); POTASSIUM SERUM 3.5 MEQ/L (3.5-5.1)
[2020-01-18 16:09] LABS: ABG BASE EXCESS 2.2 (-2.0-2.0); ABG HCO3 25.1 MEQ/L (22.0-26.0); ABG O2 SATURATION 95.2 % (95.0-99.0); ABG PARTIAL PRESSURE CO2 33.3 mmHg (35.0-45.0); ABG PARTIAL PRESSURE O2 73.1 mmHg (75.0-100.0); ABG STANDARD HCO3 26.4 MEQ/L (22.0-26.0); ABG TOTAL CO2 26.1 MEQ/L (22.0-29.0); ABG pH (ARTERIAL) 7.495 UNITS (7.350-7.450)
[2020-01-18] MEDS ORDERED: ISOVUE-370 76% 100ML VIAL As Ordered ONE (16:10)
[2020-01-18] MEDS: PIPERACILLIN/TAZOBACTAM SOD 4.5 GM in D5W MINI-BAG PLUS 50 ML IV SCH ×2 (16:43→23:39)
--- NOTE | 2020-01-18 20:05 | IPNPDOC ---
Date Seen The patient was seen on 01/18/20. Progress Note SUBJECTIVE: Darling was seen and examined this morning by the hospitalist service while lying upright in bed. Her morning ABG is improved today versus yesterday. Her pleuritic pain during inhalation remains present and is unchanged from previous days. She continues to have a moderate intermittent productive cough of white sputum. During our conversation, O2 saturations went down to high 80s and her high flow nasal cannula was increased from 4 to 6 L. She denies any traditional chest pain, palpitations, fever, chills, night sweats, abdominal pain, nausea, or vomiting. OBJECTIVE PHYSICAL EXAMINATION: VITAL SIGNS: Please see below. GENERAL: Anxious young female lying upright in bed, wearing high flow nasal cannula. Supplemental bassett. Alert and oriented 3. Mild respiratory distress. HEENT: Normocephalic, atraumatic. Noninjected, anicteric sclera. Trach is midline. CARDIOVASCULAR: Tachycardic, regular rhythm. +S1, S2 with no murmurs, gallops or rubs appreciated. RESPIRATORY: Still tachypneic, with quicker shallow breaths . Similar to exam yesterday. She is speaking in more full sentences today before getting short of breath. Bilateral inspiratory crackles posteriorly with symmetric chest expansion. Diminished tidal volume. Breathing via high flow nasal cannula. ABDOMINAL: Soft, nondistended. Left lower quadrant tenderness. Hypoactive bowel sounds throughout. Mild voluntary guarding with no rigidity. EXTREMITIES: 2+ radial and posterior tibial pulses bilaterally. Lower ext remities free of edema. NEUROLOGICAL: Awake, alert and oriented 3. No focal neurologic deficits jhon reciated. Non-dysarthric speech. PSYCHOLOGICAL: Anxious mood LABORATORY DATA, IMAGING STUDIES, MICROBIOLOGY: Please see below. ASSESSMENT AND PLAN: This is a 34-year-old female with rheumatoid arthritis on methotrexate with 3 days, fever, chills, shortness of breath and nausea/vomiting, found to have leukocytosis, hypokalemia, and concern for community-acquired pneumonia versus rheumatoid lung involvement vs COVID-19 infection. #Multifocal pneumonia -Etiology currently unknown: procal negative, significantly elevated crp, left shift PMN-predominant leukocytosis, sputum culture showed gram-positive cocci in pairs, chains, clusters -urgent care outpt covid negative earlier this week; with worsened cxr yesterday and continued dyspnea, repeat covid send out test done again today; COVID labs ordered today w/ repeat in am tomorrow -Ceftriaxone and azithromycin were discontinued today due to prolonged QTC on EKG. Zosyn was started today, Day #1 -Due to repeat Covid test ordered today, patient switched back to 4 Main today -Atypicals ordered yesterday with results pending -Continuous pulse ox; oxygen titration > 90% -continue with combo of venturi mask and NC for oxygenation -Switched to combivent (mdi) due to current pending covid test -had some improvement overnight with solumedrol; scheduled solumedrol to begin tomorrow (01/19) after receiving over 200mg IV since 1am -CT ordered this afternoon appears worsened from 01/15 CT; pt put on venturi mask -should pt desat on venturi, transfer to icu and official pulm consult is warranted #Rheumatoid arthritis -continue to hold methotrexate -home folic acid contd Disposition: Pending improved oxygen requirements and resolved hyperventilation Attending attestation: I evaluated and examined the patient in person; I discussed the care with Resident in detail and agree with the plan above. VS, I&O, 24H, Fishbone Vital Signs/I&O Vital Signs Date Time Temp Pulse Resp B/P (MAP) Pulse Ox O2 Delivery O2 Flow Rate FiO2 01/18/20 16:00 15.0 50 01/18/20 15:55 96.1 108 30 125/65 (85) 94 Venturi Mask I&O- Last 24 Hours up to 6 AM 01/18/20 06:00 Intake Total 720 ml Output Total 2600 ml Balance -1880 ml Laboratory Data 24H LABS Laboratory Tests 2 01/18/20 00:32: Blood Gas Bicarbonate Standard 28.5H, Arterial Blood pH 7.531H, Arterial Blood Partial Pressure CO2 33.2L, Arterial Blood Partial Pressure O2 61.4L, Arterial Blood Total CO2 28.2, Arterial Blood HCO3 27.2H, Arterial Blood Base Excess 4.6H, Arterial Blood Oxygen Saturation 92.8L 01/18/20 04:38: Nucleated Red Blood Cells % (auto) 0.0, Anion Gap 9, Glomerular Filtration Rate > 60.0, Calcium Level 8.2L 01/18/20 10:27: Prothrombin Time 17.3H, Prothromb Time International Ratio 1.44, Activated Partial Thromboplast Time 35.8, Fibrinogen 1203H, D-Dimer, Quantitative 2743.06H, Ferritin 343H, Total Bilirubin 0.4, Direct Bilirubin 0.2, Aspartate Amino Transf (AST/SGOT) 17, Alanine Aminotransferase (ALT/SGPT) 26, Alkaline Phosphatase 91, Lactate Dehydrogenase 441H, Total Creatine Kinase 36, Troponin I < 0.02, C-Reactive Protein, Quantitative 51.10H, Total Protein 7.0, Albumin 2.0L, Albumin/Globulin Ratio 0.4L, Thyroid Stimulating Hormone (TSH) 0.536, Immunoglobulin G 1250, Immunoglobulin M 141.0 01/18/20 14:08: Erythrocyte Sedimentation Rate 108H, Magnesium Level 2.6H 01/18/20 16:00: Blood Gas Bicarbonate Standard 26.4H, Arterial Blood pH 7.495H, Arterial Blood Partial Pressure CO2 33.3L, Arterial Blood Partial Pressure O2 73.1L, Arterial Blood Total CO2 26.1, Arterial Blood HCO3 25.1, Arterial Blood Base Excess 2.2H, Arterial Blood Oxygen Saturation 95.2 CBC/BMP Laboratory Tests 01/18/20 04:38 01/18/20 14:08 Microbiology Microbiology 01/18/20 Coronavirus COVID-19 PCR ([facility]), Received Pending 01/17/20 Respiratory Virus Panel (PCR) ([facility]) - Final, Complete 01/16/20 Blood Culture - Preliminary, Resulted No Growth after 48 hours. All Specime... 01/16/20 Blood Culture - Preliminary, Resulted No Growth after 48 hours. All Specime... 01/16/20 Urine Culture - Final, Complete 01/16/20 Gram Stain - Final, Resulted 01/16/20 Sputum Culture, Resulted Pending ANCELMO MEEK D.O. January 18, 2020 20:05 SHANTE RICE MD Jan 23, 2020 23:36
[2020-01-18] MEDS: methylPREDNISolone INJ 125 MG/2 ML VIAL (J2930) IV SCH (21:18)
[2020-01-19] VITALS (22 sets, daily range): BP systolic 102–132; BP diastolic 56–85; PULSE 81; O2SAT 92
[2020-01-19 01:44] LABS: ABG BASE EXCESS 7.1 (-2.0-2.0); ABG HCO3 30.7 MEQ/L (22.0-26.0); ABG O2 SATURATION 96.1 % (95.0-99.0); ABG PARTIAL PRESSURE CO2 39.5 mmHg (35.0-45.0); ABG PARTIAL PRESSURE O2 73.8 mmHg (75.0-100.0); ABG STANDARD HCO3 30.9 MEQ/L (22.0-26.0); ABG TOTAL CO2 31.9 MEQ/L (22.0-29.0); ABG pH (ARTERIAL) 7.508 UNITS (7.350-7.450)
[2020-01-19] MEDS ORDERED: VANCOMYCIN HCL 1,500 MG in IV FLUID PLACE HOLDER 1 EA IV ONE (02:00)
[2020-01-19] MEDS ORDERED: VANCOMYCIN HCL 750 MG, VIAL MATE ADAPTER 1 EACH in D5W 250 ML IV ONE ×2 (03:00→04:00)
[2020-01-19] MEDS: COMBIVENT RESPIMAT 100-20MCG INHALER 4GM INH SCH ×3 (03:37→10:16)
[2020-01-19 03:44] LABS: ABG HCO3 30.6 MEQ/L (22.0-26.0); ABG O2 SATURATION 99.7 % (95.0-99.0); ABG PARTIAL PRESSURE CO2 39.9 mmHg (35.0-45.0); ABG STANDARD HCO3 30.9 MEQ/L (22.0-26.0); ABG TOTAL CO2 31.9 MEQ/L (22.0-29.0); ABG pH (ARTERIAL) 7.503 UNITS (7.350-7.450)
--- NOTE | 2020-01-19 05:00 | PHACANCOPD ---
PHARMACY VANCOMYCIN DOSING Pt Demographics Demographics Patient Age:34 , Weight:74.600 , Gender: female Adjusted Body Weight Date: 01/19/20, Adjusted Body Weight: [74.6] Kg(ACTUAL WT) Vancomycin Vancomycin indication: PNEUMONIA,GM+ SPUTUM Vancomycin Target Ranges: 15-20 mcg/ml Vancomycin Load Y/N: Yes Load Dose Date Time Vancomycin Load Dose: 1.5GM Date: 01/18 Time: 3:30/4:30 Vancomycin Dose Date: 01/19/20. Current Vancomycin Dose: [1 GM Q8H] Intermittent Dosing?: No Labs Micro Microbiology 01/18/20 Coronavirus COVID-19 PCR ([facility]), Received Pending 01/17/20 Respiratory Virus Panel (PCR) ([facility]) - Final, Complete 01/16/20 Blood Culture - Preliminary, Resulted No Growth after 48 hours. All Specime... 01/16/20 Blood Culture - Preliminary, Resulted No Growth after 48 hours. All Specime... 01/16/20 Urine Culture - Final, Complete 01/16/20 Gram Stain - Final, Resulted 01/16/20 Sputum Culture, Resulted Pending Creatinine Clearance Date:01/19/20. Creatinine Clearance: >100]. Assessment and Plan Maintaining Current Dose?: Yes Reason for dose change: No Dose Change Pharmacist Note Pharmacist Note Date: 01/19/20. Pharmacist note:Pharmacist consult ordered for Vancomycin dosing.(trough goal=15-20) Patient 9s 34YOF,former smoker,HT:75",wt:74.6kg,SCR=0.44, Calculated CRCL>100NKDA,.Had been receiving Pip/Tazo 4.5 GM IV [id number].Patient has transferred to icu. Vancomycon 1.5 gram LD,gfollowed by a regimen of 1 gram Q 8Hours to begin this morning@10:00. First trough is scheduled for 01/19@1:00( prior to the 4th dose)-will continue to follow and adjust as needed, [facility] January 19, 2020 05:00
[2020-01-19 05:17] LABS: HEMATOCRIT 28.4 % (36.0-47.0); HEMOGLOBIN 9.4 g/dl (12.0-15.5); MEAN CORPUSCULAR HEMOGLOBIN 29.4 pg (27.0-33.0); MEAN CORPUSCULAR HGB CONC 33.1 g/dl (32.0-36.5); MEAN CORPUSCULAR VOLUME 88.8 fl (80.0-96.0); PLATELET COUNT, AUTOMATED 480 10^3/uL (150-450); WHITE BLOOD COUNT 26.5 10^3/uL (4.0-10.0)
[2020-01-19 05:28] LABS: INR 1.29; PROTHROMBIN TIME 15.8 SECONDS (11.8-14.0)
[2020-01-19 05:29] LABS: PARTIAL THROMBOPLASTIN TIME 35.5 SECONDS (25.0-38.4)
[2020-01-19 05:31] LABS: D-DIMER QUANT 1679.49 ng/ml (<500)
[2020-01-19 05:44] LABS: ALBUMIN 1.8 GM/DL (3.2-5.2); ALT/SGPT 19 U/L (12-78); BILIRUBIN,DIRECT 0.1 MG/DL (0.0-0.2); BILIRUBIN,TOTAL 0.2 MG/DL (0.2-1.0); BLOOD UREA NITROGEN 11 MG/DL (7-18); CALCIUM LEVEL 8.6 MG/DL (8.5-10.1); CARBON DIOXIDE LEVEL 32 MEQ/L (21-32); CHLORIDE LEVEL 104 MEQ/L (98-107); CPK CREATINE PHOSPHOKINASE 24 U/L (26-192); CREATININE FOR GFR 0.55 MG/DL (0.55-1.30); FERRITIN 354 NG/ML (8-252); GLOMERULAR FILTRATION RATE > 60.0 (>60); GLUCOSE, FASTING 224 MG/DL (70-100); LDH LACTATE DEHYDROGENASE 317 U/L (84-246); POTASSIUM SERUM 3.2 MEQ/L (3.5-5.1); SODIUM LEVEL 141 MEQ/L (136-145); TOTAL PROTEIN 7.3 GM/DL (6.4-8.2); TROPONIN I < 0.02 NG/ML (< 0.10)
[2020-01-19] MEDS: PIPERACILLIN/TAZOBACTAM SOD 4.5 GM in D5W MINI-BAG PLUS 50 ML IV SCH ×4 (05:53→23:15)
[2020-01-19] MEDS: SLF 3 ML SYR IV SCH ×3 (05:54→21:24)
[2020-01-19] MEDS: POTASSIUM CHLORIDE 10 MEQ SR TABLET PO SCH ×2 (06:57→09:18)
--- NOTE | 2020-01-19 08:38 | REP ---
CT ANGIOGRAM OF THE CHEST: TECHNIQUE: Axial contrast-enhanced images from the thoracic inlet to the upper abdomen using 100 mL Isovue-370 intravenous contrast material with multiplanar reformations. COMPARISON: CT 01/16/[address] evidence of pulmonary embolism. There is no thoracic aortic aneurysm or dissection. The heart is not enlarged. No pericardial effusion is seen. No significant adenopathy is seen. Dense bilateral diffuse infiltrates have increased since the prior study. There are tiny pleural effusions bilaterally. IMPRESSION: No pulmonary embolism. Worsening of dense diffuse bilateral infiltrates, particularly in the lower lobes. Tiny bilateral effusions. Electronically Signed by Conrad Irwin MD 01/19/2020 10:11 A
[2020-01-19] MEDS: methylPREDNISolone INJ 125 MG/2 ML VIAL (J2930) IV SCH ×2 (09:18→21:24)
[2020-01-19] MEDS: FOLIC ACID 1 MG TAB PO SCH (09:18)
[2020-01-19] MEDS: ENOXAPARIN 40MG/0.4ML SYRINGE (J1650 PER 10MG) SC SCH (09:18)
[2020-01-19] MEDS: VANCOMYCIN HCL 1,000 MG, VIAL MATE ADAPTER 1 EACH in D5W 250 ML IV SCH ×2 (09:19→17:51)
--- NOTE | 2020-01-19 11:59 | IPNPDOC ---
Date Seen The patient was seen on 01/19/20. Progress Note SUBJECTIVE: 34-year-old female with past medical history of rheumatoid arthritis on methotrexate, was admitted for multifocal pneumonia. Patient has progressively been worsening throughout hospitalization, developing worsening hypoxemic respiratory failure, decompensated overnight and transferred to the ICU. Patient is now on Vapotherm at 60% FiO2. Patient is seen in the morning, dyspneic, tachypneic and anxious, otherwise unchanged from yesterday. She she does report pleuritic chest pain with deep inspiration and coughing, denies nausea, vomiting, diarrhea or constipation. 10 point review of system is negative except for above PHYSICAL EXAMINATION: VITAL SIGNS: Please see below. GENERAL: Mild distress HEENT: Normocephalic, atraumatic, moist mucous membranes NECK: Supple CARDIOVASCULAR EXAMINATION: S1, S2, tachycardic RESPIRATORY EXAMINATION: Poor air movement, clear to auscultation, no wheezing ABDOMINAL EXAMINATION: Soft, nontender, nondistended, positive bowel sounds EXTREMITIES: Range of motion intact SKIN: No rash NEUROLOGICAL EXAMINATION: Alert and oriented 3, no focal deficits PSYCHIATRIC EXAMINATION: Calm and cooperative LABORATORY DATA, IMAGING STUDIES, MICROBIOLOGY: Please see below. ASSESSMENT AND PLAN: 34-year-old female with past medical history of rheumatoid arthritis is admitted for multifocal pneumonia with worsening acute hypoxemic respiratory failure. PROBLEMS: 1. Multifocal pneumonia: Antibiotic coverage has been broadened to vancomycin and Zosyn, cultures negative to date. 2. Acute hypoxemic respiratory failure: Secondary to above, oxygen requirements worsening, now on Vapotherm, a 60% FiO2, continue IV steroids, pulmonary has been consulted for further assistance. 3. Rheumatoid arthritis: On methotrexate at home, hold for now. DVT prophylaxis: Lovenox. GI prophylaxis: PPI VS, I&O, 24H, Fishbone Vital Signs/I&O Vital Signs Date Time Temp Pulse Resp B/P (MAP) Pulse Ox O2 Delivery O2 Flow Rate FiO2 01/19/20 09:00 79 123/70 (87) 97 HVNI-Vapotherm 25.0 60 01/19/20 08:00 98.3 24 I&O- Last 24 Hours up to 6 AM 01/19/20 05:59 Intake Total 960 ml Output Total 700 ml Balance 260 ml Laboratory Data 24H LABS Laboratory Tests 2 01/18/20 14:08: Erythrocyte Sedimentation Rate 108H, Magnesium Level 2.6H 01/18/20 16:00: Blood Gas Bicarbonate Standard 26.4H, Arterial Blood pH 7.495H, Arterial Blood Partial Pressure CO2 33.3L, Arterial Blood Partial Pressure O2 73.1L, Arterial Blood Total CO2 26.1, Arterial Blood HCO3 25.1, Arterial Blood Base Excess 2.2H, Arterial Blood Oxygen Saturation 95.2 01/19/20 01:32: Blood Gas Bicarbonate Standard 30.9H, Arterial Blood pH 7.508H, Arterial Blood Partial Pressure CO2 39.5, Arterial Blood Partial Pressure O2 73.8L, Arterial Blood Total CO2 31.9H, Arterial Blood HCO3 30.7H, Arterial Blood Base Excess 7.1H, Arterial Blood Oxygen Saturation 96.1 01/19/20 03:33: Blood Gas Bicarbonate Standard 30.9H, Arterial Blood pH 7.503H, Arterial Blood Partial Pressure CO2 39.9, Arterial Blood Partial Pressure O2 207.0H, Arterial Blood Total CO2 31.9H, Arterial Blood HCO3 30.6H, Arterial Blood Base Excess 7.0H, Arterial Blood Oxygen Saturation 99.7H 01/19/20 04:58: Nucleated Red Blood Cells % (auto) 0.0, Prothrombin Time 15.8H, Prothromb Time International Ratio 1.29, Activated Partial Thromboplast Time 35.5, Fibrinogen 864H, D-Dimer, Quantitative 1679.49H, Anion Gap 5L, Glomerular Filtration Rate > 60.0, Calcium Level 8.6, Ferritin 354H, Total Bilirubin 0.2, Direct Bilirubin 0.1, Aspartate Amino Transf (AST/SGOT) 15, Alanine Aminotransferase (ALT/SGPT) 19, Alkaline Phosphatase 80, Lactate Dehydrogenase 317H, Total Creatine Kinase 24L, Troponin I < 0.02, C-Reactive Protein, Quantitative 40.70H, Total Protein 7.3, Albumin 1.8L, Albumin/Globulin Ratio 0.3L CBC/BMP Laboratory Tests 01/18/20 14:08 01/19/20 04:58 Microbiology Microbiology 01/18/20 Coronavirus COVID-19 PCR ([facility]), Received Pending 01/17/20 Respiratory Virus Panel (PCR) ([facility]) - Final, Complete 01/16/20 Blood Culture - Preliminary, Resulted No Growth after 48 hours. All Specime... 01/16/20 Blood Culture - Preliminary, Resulted No Growth after 48 hours. All Specime... 01/16/20 Urine Culture - Final, Complete 01/16/20 Gram Stain - Final, Complete 01/16/20 Sputum Culture - Final, Complete SHANTE RICE MD January 19, 2020 11:58
[2020-01-19] MEDS: ALBUTEROL SULFATE 2.5 MG/0.5 ML INH NEB SOLN NEB SCH ×4 (12:00→23:49)
[2020-01-19] MEDS ORDERED: PANTOPRAZOLE 40MG TAB (PROTONIX) PO ONE (13:00)
[2020-01-19] MEDS: hydrOXYzine 25 MG TAB PO PRN (16:18)
[2020-01-19] MEDS ORDERED: methylPREDNISolone INJ 40 MG/1 ML VIAL (J2920) IV SCH (17:00)
[2020-01-20] VITALS (9 sets, daily range): BP systolic 110–129; BP diastolic 57–82
[2020-01-20] MEDS: VANCOMYCIN HCL 1,000 MG, VIAL MATE ADAPTER 1 EACH in D5W 250 ML IV SCH ×3 (01:59→18:04)
[2020-01-20] MEDS: ALBUTEROL SULFATE 2.5 MG/0.5 ML INH NEB SOLN NEB SCH ×6 (04:06→23:47)
[2020-01-20] MEDS: PIPERACILLIN/TAZOBACTAM SOD 4.5 GM in D5W MINI-BAG PLUS 50 ML IV SCH ×4 (04:15→22:57)
[2020-01-20 05:11] LABS: HEMATOCRIT 30.2 % (36.0-47.0); MEAN CORPUSCULAR HEMOGLOBIN 29.4 pg (27.0-33.0); MEAN CORPUSCULAR HGB CONC 33.1 g/dl (32.0-36.5); MEAN CORPUSCULAR VOLUME 88.8 fl (80.0-96.0); PLATELET COUNT, AUTOMATED 543 10^3/uL (150-450); WHITE BLOOD COUNT 20.9 10^3/uL (4.0-10.0)
[2020-01-20 05:12] LABS: BASO % 0.1 % (0.0-1.0); HEMATOCRIT 29.4 % (36.0-47.0); HEMOGLOBIN 9.5 g/dl (12.0-15.5); LYMPH % 4.8 % (24.0-44.0); MEAN CORPUSCULAR HEMOGLOBIN 28.8 pg (27.0-33.0); MEAN CORPUSCULAR HGB CONC 32.3 g/dl (32.0-36.5); MEAN CORPUSCULAR VOLUME 89.1 fl (80.0-96.0); MONO # 0.3 10^3/uL (0.0-0.8); MONO % 1.4 % (0.0-5.0); NEUTROPHILS # 19.1 10^3/uL (1.5-8.5); NEUTROPHILS % 92.6 % (36.0-66.0); PLATELET COUNT, AUTOMATED 548 10^3/uL (150-450); WHITE BLOOD COUNT 20.6 10^3/uL (4.0-10.0)
[2020-01-20 05:33] LABS: BLOOD UREA NITROGEN 14 MG/DL (7-18); CALCIUM LEVEL 8.8 MG/DL (8.5-10.1); CARBON DIOXIDE LEVEL 29 MEQ/L (21-32); CHLORIDE LEVEL 104 MEQ/L (98-107); CREATININE FOR GFR 0.65 MG/DL (0.55-1.30); GLOMERULAR FILTRATION RATE > 60.0 (>60); GLUCOSE, FASTING 194 MG/DL (70-100); POTASSIUM SERUM 3.8 MEQ/L (3.5-5.1); SODIUM LEVEL 138 MEQ/L (136-145)
[2020-01-20] MEDS: SLF 3 ML SYR IV SCH ×3 (06:10→20:55)
--- NOTE | 2020-01-20 07:28 | REP ---
Clinical: Pneumonia. Comparison: 01/18/2020. Findings: Patchy bilateral lower lobe air space disease and possible small pleural reactions are identified, but significantly improved from prior examination. No pneumothorax. Cardiac silhouette is normal. Skeletal structures are intact. Impression: 1. Bilateral infiltrates improved from prior examination. Electronically Signed by Twan Escobedo MD 01/20/2020 07:20 A
[2020-01-20] MEDS: methylPREDNISolone INJ 125 MG/2 ML VIAL (J2930) IV SCH ×2 (09:44→20:55)
[2020-01-20] MEDS: FOLIC ACID 1 MG TAB PO SCH (09:44)
[2020-01-20] MEDS: PANTOPRAZOLE 40MG TAB (PROTONIX) PO SCH (09:44)
[2020-01-20] MEDS: ENOXAPARIN 40MG/0.4ML SYRINGE (J1650 PER 10MG) SC SCH (09:44)
--- NOTE | 2020-01-20 11:55 | IPNPDOC ---
Date Seen The patient was seen on 01/20/20. Progress Note SUBJECTIVE: Patient was seen and examined this morning. There were no adverse events reported overnight. Patient states that she feels as if her breathing has improved. She states that the pleuritic chest pain has improved as well. She is currently on vapotherm with FiO2 of 60% and being titrated down. She states that she does have an intermittent cough with some sputum production. She denies any fevers or chills OBJECTIVE PHYSICAL EXAMINATION: VITAL SIGNS: Please see below. GENERAL: Awake, alert, and oriented. Appears in no acute distress. Sitting comfortably on chair in room HEENT: Atraumatic, normocephalic. Eyes are nonicteric. Trachea is midline. CARDIOVASCULAR: Normal S1, S2. Regular rate and rhythm. No clicks, rubs, or murmurs RESPIRATORY: Clear vesicular breath sounds bilaterally with good respiratory effort. Good aeration. Symmetric chest expansion. No wheezes, rhonchi, or rales ABDOMINAL: Soft, nondistended. Nontender. No rebound tenderness or guarding. Normoactive bowel sounds throughout EXTREMITIES: No edema. Full and equal pulses in bilateral upper and lower ext remities NEUROLOGICAL: No focal neurological deficits PSYCHOLOGICAL: Mood and affect appropriate for situation LABORATORY DATA, IMAGING STUDIES, MICROBIOLOGY: Please see below. DVT prophylaxis ordered?: Lovenox ASSESSMENT AND PLAN: 34 year old female who presented to [facility] with acute hypoxemic respiratory failure requiring high flow nasal cannula PROBLEMS: 1. Acute hypoxemic Respiratory Failure -Etiology is likely multifactorial. She has a history of Vaping CBD oil and therefore can not exclude a vaping associated lung injury. Likely a component of bacterial coinfection. -Patient developed acute hypoxemic respiratory requiring high flow nasal cannula. Currently at FiO2 of 60% with 100% O2 sats. Will titrate FiO2 down and change to nasal cannula as patient appears to have improved clinically -Continue antibiotics for now with Vancomycin and Zosyn. Will deescalate tomorrow -Continue IV steroids in setting of possible vaping associated lung injury/inflammatory process -Pulmonary Medicine has been consulted and is following -Continue Duonebs -Incentive Spirometry 2. Multifocal Pneumonia -As stated above. Patient will be continued on IV antibiotics and steroids 3. Rheumatoid Arthritis -Methotrexate on hold -Likely not in an acute flare as patient denies any current worsening joint pain 4. History of Asthma -Patient has a history of asthma. She takes no maintenance inhalers and only uses a rescue inhaler when needed. She does not have any wheezing on exam 5. Anxiety -Continue Atarax PRN for anxiety 6. DVT prophylaxis -Continue lovenox DISPOSITION: Patient has had significant clinical improvement since yesterday. Will continue to titrate FiO2. If patient remains stable will downgrade from ICU status today. PT/OT ordered Attending attestation: I evaluated and examined the patient in person; I discussed the care with Resident in detail and agree with the plan above. VS, I&O, 24H, Fishbone Vital Signs/I&O Vital Signs Date Time Temp Pulse Resp B/P (MAP) Pulse Ox O2 Delivery O2 Flow Rate FiO2 01/20/20 10:50 99 HVNI-Vapotherm 25.0 50 01/20/20 08:00 98.2 88 22 125/81 (96) I&O- Last 24 Hours up to 6 AM 01/20/20 06:00 Intake Total 2050 ml Output Total 2300 ml Balance -250 ml Laboratory Data 24H LABS Laboratory Tests 2 01/20/20 00:54: Vancomycin Level Trough 12.7 01/20/20 04:52: Immature Granulocyte % (Auto) 1.1, Neutrophils (%) (Auto) 92.6H, Lymphocytes (%) (Auto) 4.8L, Monocytes (%) (Auto) 1.4, Eosinophils (%) (Auto) 0.0, Basophils (%) (Auto) 0.1, Neutrophils # (Auto) 19.1H, Lymphocytes # (Auto) 1.0L, Monocytes # (Auto) 0.3, Eosinophils # (Auto) 0.0, Basophils # (Auto) 0.0, Nucleated Red Blood Cells % (auto) 0.0, Anion Gap 5L, Glomerular Filtration Rate > 60.0, Calcium Level 8.8 CBC/BMP Laboratory Tests 01/20/20 04:52 Microbiology Microbiology 01/18/20 Coronavirus COVID-19 PCR ([facility]), Received Pending 01/17/20 Respiratory Virus Panel (PCR) ([facility]) - Final, Complete 01/16/20 Blood Culture - Preliminary, Resulted No Growth after 72 hours. All specime... 01/16/20 Blood Culture - Preliminary, Resulted No Growth after 72 hours. All specime... 5/28/20 Urine Culture - Final, Complete 01/16/20 Gram Stain - Final, Complete 01/16/20 Sputum Culture - Final, Complete NATACHA WOMACK DO Jan 20, 2020 11:55 SHANTE RICE MD Jan 23, 2020 23:37
--- NOTE | 2020-01-20 13:18 | CR ---
PULMONARY CONSULTATION DATE OF CONSULTATION: 01/19/2020 I was called to the intensive care unit to evaluate this 34-year-old female for progressive hypoxemia. She was admitted on 01/16/2020 with three days of progressive dyspnea, dry cough, fever, complicated by nausea and persistent vomiting. She does not recall a specific aspiration event. Prior to her acute illness, she has a history of asthma which was established on clinical grounds remotely and for which she has used an albuterol metered-dose inhaler on an as-needed basis. She had been noting an increase and requirement for its use in recent weeks. In September of this year, she was diagnosed with rheumatoid arthritis as she had joint pain and stiffness and positive serologies. She had been using CBD oil in an E-cigarette by inhalation to address symptoms. She was started on methotrexate weekly, her last dose was 01/08/2020. She had noted some initial improvement, but her symptoms were worsening despite the methotrexate in recent weeks. PAST PULMONARY HISTORY: Includes 15 pack-years of cigarette smoking, she quit smoking 6 years ago. There is a history of marijuana smoking in the past and E-cigarette smoking as noted above. There is no history of recurring bronchopulmonary infections. She has never suffered chest trauma. She has had no recent significant foreign travel. She owns no unusual pets and partakes in no uncommon hobbies that would expose her to respiratory irritants. She has no known tuberculosis exposure. A quantiferon gold study was recently negative. She has never suffered deep vein thrombosis (DVT) nor pulmonary embolism. She has never been overcome by smoke or fumes. There is no history of change in residence, heating system or water system. She has had no recent ill contacts. PAST MEDICAL HISTORY: Includes asthma, anxiety, depression, and recently rheumatoid arthritis. MEDICATIONS PRIOR TO ADMISSION TO THE HOSPITAL: - albuterol metered-dose inhaler as needed for dyspnea - methotrexate dose unknown, once weekly MEDICATION ALLERGIES: No medication allergies that she is aware of. SOCIAL HISTORY: Reformed smoker. She has an approximately 15-year tobacco exposure history. She does not take alcohol. Lives with a supportive family. FAMILY HISTORY: She has a maternal grandmother who suffered from rheumatoid arthritis. There is a history of malignant disease and hypertension. No significant family history of pulmonary disease. REVIEW OF SYSTEMS: Constitutional: Until her acute illness, her appetite and weight had been stable. HEENT: She had a history of intermittent headaches. No impairment of vision, smell, hearing or taste. Cardiovascular: There is no history of typical anginal-type chest pain, orthopnea, paroxysmal nocturnal dyspnea or claudication. GI: She has no ongoing history of nausea, vomiting, constipation, or diarrhea. : She has a history of recurrent urinary tract infections treated on an outpatient basis. No history of kidney stones or renal failure. Endocrine: There is no history of diabetes or thyroid disease. Hematologic: No easy bruising or bleeding. She has never received a blood transfusion that she is aware of. Neurologic: There is no history of stroke, seizure or muscle weakness. Allergies/Immunologic: No specific environmental sensitivities. Psychiatric: She has a history of anxiety and depression. Musculoskeletal: She has recently developed joint stiffness and swelling in her hands and wrists. PHYSICAL EXAMINATION: Her temperature is 98.3, T (max)for the past 24 hours 99.1, pulse rate 79, respirations 28, blood pressure 122/70. She is awake, alert, oriented, conversant, dyspneic, with no accessory muscle engagement. director of user experience of nausea and vomiting in the last 24-48 hours. HEENT: Her oral and nasal mucosa are pink. There is no posterior pharyngeal erythema. No adenopathy in the neck. There is some shotty adenopathy in the supraclavicular fossa on the left. Neck is supple. No meningismus. Jugular veins are flat. Carotid upstroke is brisk. Heart sounds are regular without appreciable murmur. No abnormal valve sounds. Breath sounds are diminished with consolidation bilaterally in the bases. No overt wheezing. Chest is symmetric. Moves symmetrically. No fremitus. There is dullness to percussion. Abdomen is soft with intact bowel sounds. No mass or organomegaly. Extremities: Show no significant peripheral edema. There are ecchymoses from venipuncture, but no skin rashes. The proximal interphalangeal joints of her hands are slightly swollen and the wrist is slightly tender on the right to range of motion. Peripheral pulses are easily palpable. Nails are not clubbed. DIAGNOSTIC STUDIES: Her white cell count today is 26.5, hemoglobin 9.4, hematocrit 28.4 and platelet count is 480,000. On admission, her white count was 18.3 with 92% neutrophils and 4.6 lymphocytes. Arterial blood gases this morning showed a pH 7.50, pCO2 of 39, pO2 of 207 on supplemental oxygen. Her electrolytes show sodium 141, potassium 3.2, chloride 104, CO2 32, BUN 11, creatinine 0.5, glucose 244, calcium 8.6, ferritin 3.54, bilirubin 0.2, AST 15, ALT 19, LDH 317 down from 441. C-reactive protein is 40. PT is 15.8, PTT 35.5, fibrinogen 864. Her COVID test is negative times two. Rheumatoid factor was 64.6 in August with an anticyclic ceruletide peptide of greater than 250. The MAXIMUS screen was negative. There was a speckled pattern with a titer of 1:320. IgG is 1250, IgM 141. Chest imaging shows a diffuse interstitial infiltrate more so peripherally and in the bases there is some consolidation. IMPRESSION/RECOMMENDATION: 1. Hypoxemia. I agree with aerosolized oxygen to keep saturation greater than 90. 2. Pneumonia. Broad-spectrum antibiotics for gram-positive coverage are appropriate and should be continued. Will check a CBC with differential tomorrow and add incentive spirometry to reduce atelectasis. a) Rule out E-cigarette vape related acute lung injury. Steroids have been started. b) Rule out opportunistic infection (Pneumocystis jiroveci). If the chest x-ray progresses, I would consider adding trimethoprim sulfamethoxazole. 3. Asthma. I will change the beta agonist delivery to nebulizer delivered via EZ-Pap. I agree with ICU care at this point for close observation and I will follow with you. Thank you for allowing me to consult in the care of this patient. If there are questions, please do not hesitate to contact me.
[2020-01-20 15:07] LABS: BODY FLUID CULTURE Not indicated. (.); LEGIONELLA ANTIGEN URINE Negative (Negative); ORGANISM ID Not indicated. (.); SPECIMEN SOURCE Urine (.); URINE STREP PNEUMONIAE ANTIGEN Negative (Negative)
[2020-01-21] MEDS: VANCOMYCIN HCL 1,000 MG, VIAL MATE ADAPTER 1 EACH in D5W 250 ML IV SCH ×2 (01:57→10:40)
[2020-01-21 02:00] VITALS: BP 134/81
[2020-01-21] MEDS: ALBUTEROL SULFATE 2.5 MG/0.5 ML INH NEB SOLN NEB SCH ×5 (04:10→19:58)
[2020-01-21] MEDS: PIPERACILLIN/TAZOBACTAM SOD 4.5 GM in D5W MINI-BAG PLUS 50 ML IV SCH (04:52)
[2020-01-21] MEDS: SLF 3 ML SYR IV SCH ×3 (04:53→20:35)
[2020-01-21 06:00] VITALS: BP 127/74
[2020-01-21] MEDS: PANTOPRAZOLE 40MG TAB (PROTONIX) PO SCH (08:31)
[2020-01-21] MEDS: FOLIC ACID 1 MG TAB PO SCH (08:31)
[2020-01-21] MEDS: methylPREDNISolone INJ 125 MG/2 ML VIAL (J2930) IV SCH ×2 (08:32→20:34)
[2020-01-21] MEDS: ENOXAPARIN 40MG/0.4ML SYRINGE (J1650 PER 10MG) SC SCH (08:32)
[2020-01-21] MEDS: ACETAMINOPHEN TAB 650MG DOSE (2X325MG) PO PRN (09:58)
[2020-01-21 10:00] VITALS: BP 132/96
[2020-01-21 14:00] VITALS: BP 123/65
[2020-01-21] MEDS: LevoFLOXacin 750 MG TABLET PO SCH (14:10)
--- NOTE | 2020-01-21 16:31 | IPNPDOC ---
Date Seen The patient was seen on 01/21/20. Progress Note SUBJECTIVE: Patient was seen and examined this morning. She is currently on 2L nasal cannula. There have been no adverse events reported overnight. The patient states that she feels much better. She has been afebrile. She has been working with physical therapy OBJECTIVE PHYSICAL EXAMINATION: VITAL SIGNS: Please see below. GENERAL: Awake, alert, and oriented. Appears in no acute distress. Sitting comfortably on chair in room HEENT: Atraumatic, normocephalic. Eyes are nonicteric. Trachea is midline. CARDIOVASCULAR: Normal S1, S2. Regular rate and rhythm. No clicks, rubs, or murmurs RESPIRATORY: Clear vesicular breath sounds bilaterally with good respiratory effort. Good aeration. Decreased breath sounds in the bases bilaterally. Symmetric chest expansion. No wheezes, rhonchi, or rales ABDOMINAL: Soft, nondistended. Nontender. No rebound tenderness or guarding. Normoactive bowel sounds throughout EXTREMITIES: No edema. Full and equal pulses in bilateral upper and lower extremities NEUROLOGICAL: No focal neurological deficits PSYCHOLOGICAL: Mood and affect appropriate for situation LABORATORY DATA, IMAGING STUDIES, MICROBIOLOGY: Please see below. DVT prophylaxis ordered?: Lovenox ASSESSMENT AND PLAN: 34 year old female who presented to [facility] with acute hypoxemic respiratory failure requiring high flow nasal cannula . PROBLEMS: 1. Acute hypoxemic Respiratory Failure -Etiology is likely multifactorial. Likely Vaping associated lung injury with possible bacterial coinfection. Patient has received empiric antibiotics. Procalcitonin was not elevated and therefore bacterial pneumonia is questionable. Patient has received empiric antibiotic coverage with vancomycin and zosyn. -Will discontinue Vanc and Zosyn. Transition to oral Levaquin for 2 more days of treatment -Patient is currently on nasal cannula at 2L. Will continue to wean down Continue Incentive Spirometry -Duonebs -Continue IV steroids in setting of MARGARET. Will likely decrease IV steroids tomorrow. -Pulmonary medicine has been consulted. Recommendations are appreciated 2. Multifocal Pneumonia -As stated above. -Vanc and Zosyn discontinued -Transition to oral Levaquin for 2 days to complete treatment 3. Rheumatoid Arthritis -Methotrexate on hold -Likely not in an acute flare as patient denies any current worsening joint pain 4. History of Asthma -Patient has a history of asthma. She takes no maintenance inhalers and only uses a rescue inhaler when needed. She does not have any wheezing on exam 5. Anxiety -Continue Atarax PRN for anxiety 6. DVT prophylaxis -Continue lovenox DISPOSITION: Patient has had significant clinical improvement since yesterday. Will continue to titrate FiO2. Patients discharge is pending PT clearance Attending attestation: I evaluated and examined the patient in person; I discussed the care with Resident in detail and agree with the plan above. VS, I&O, 24H, Fishbone Vital Signs/I&O Vital Signs Date Time Temp Pulse Resp B/P (MAP) Pulse Ox O2 Delivery O2 Flow Rate FiO2 01/21/20 14:00 98.0 93 20 123/65 (84) 96 Nasal Cannula 2.0 01/20/20 12:19 50 I&O- Last 24 Hours up to 6 AM 01/21/20 06:00 Intake Total 1920 ml Output Total 1150 ml Balance 770 ml Laboratory Data 24H LABS Laboratory Tests 2 01/21/20 08:56: Vancomycin Level Trough 14.9 Microbiology Microbiology 01/18/20 Coronavirus COVID-19 PCR ([facility]) - Final, Complete 01/17/20 Respiratory Virus Panel (PCR) ([facility]) - Final, Complete 01/16/20 Blood Culture - Final, Complete NO GROWTH AFTER 5 DAYS 01/16/20 Blood Culture - Final, Complete NO GROWTH AFTER 5 DAYS 01/16/20 Urine Culture - Final, Complete 01/16/20 Gram Stain - Final, Complete 01/16/20 Sputum Culture - Final, Complete NATACHA WOMACK DO Jan 21, 2020 16:31 SHANTE RICE MD Jan 23, 2020 23:48
[2020-01-21 18:00] VITALS: BP 144/77
[2020-01-21 22:00] VITALS: BP 108/70
[2020-01-22] MEDS: ALBUTEROL SULFATE 2.5 MG/0.5 ML INH NEB SOLN NEB SCH ×4 (00:23→11:38)
[2020-01-22 02:00] VITALS: BP 132/79
[2020-01-22] MEDS: LevoFLOXacin 750 MG TABLET PO SCH (05:47)
[2020-01-22] MEDS: SLF 3 ML SYR IV SCH (05:48)
[2020-01-22 06:00] VITALS: BP 136/86
[2020-01-22 06:00] LABS: HEMOGLOBIN 10.4 g/dl (12.0-15.5); MEAN CORPUSCULAR HEMOGLOBIN 29.5 pg (27.0-33.0); MEAN CORPUSCULAR HGB CONC 33.5 g/dl (32.0-36.5); MEAN CORPUSCULAR VOLUME 88.1 fl (80.0-96.0); PLATELET COUNT, AUTOMATED 562 10^3/uL (150-450); RED BLOOD COUNT 3.52 10^6/uL (4.00-5.40); WHITE BLOOD COUNT 11.2 10^3/uL (4.0-10.0)
[2020-01-22 06:29] LABS: BLOOD UREA NITROGEN 9 MG/DL (7-18); CALCIUM LEVEL 8.7 MG/DL (8.5-10.1); CARBON DIOXIDE LEVEL 29 MEQ/L (21-32); CHLORIDE LEVEL 105 MEQ/L (98-107); CREATININE FOR GFR 0.56 MG/DL (0.55-1.30); GLOMERULAR FILTRATION RATE > 60.0 (>60); GLUCOSE, FASTING 145 MG/DL (70-100); POTASSIUM SERUM 4.2 MEQ/L (3.5-5.1); SODIUM LEVEL 141 MEQ/L (136-145)
[2020-01-22] MEDS: ENOXAPARIN 40MG/0.4ML SYRINGE (J1650 PER 10MG) SC SCH (09:00)
[2020-01-22 10:00] VITALS: BP 133/58
[2020-01-22] MEDS: methylPREDNISolone INJ 125 MG/2 ML VIAL (J2930) IV SCH (10:48)
[2020-01-22] MEDS: FOLIC ACID 1 MG TAB PO SCH (10:48)
[2020-01-22] MEDS: PANTOPRAZOLE 40MG TAB (PROTONIX) PO SCH (10:48)
[2020-01-22] MEDS ORDERED: PRED5TA PO (11:05)
[2020-01-22] MEDS ORDERED: PRED10TA2 PO (11:05)
[2020-01-22] MEDS ORDERED: PROTPAK PO (11:05)
[2020-01-22] MEDS ORDERED: VENTAER INH (11:06)
--- NOTE | 2020-01-22 16:37 | DS.PDOC ---
Discharge Summary General Date of Admission January 16, 2020 at 14:42 Date of Discharge 01/22/2020 Primary Care Physician: JENNI ORTIZ MD Attending Physician: SHANTE RICE MD Specialist/Consultants Involve: Hermilo Vasquez DO, [facility] [place] Discharge Summary PROCEDURES PERFORMED DURING STAY: [None]. ADMITTING DIAGNOSES: 1. Pneumonia 2. Nausea/vomiting 3. Rheumatoid Arthritis DISCHARGE DIAGNOSES: 1. Acute Hypoxic Respiratory Failure 2/2 Multifocal PNA vs Vaping Associated Lung Injury COMPLICATIONS/CHIEF COMPLAINT: Pneumonia. HISTORY OF PRESENT ILLNESS: Patient is a 34 year old female who presented to the [facility] ER with 3 days of nausea, vomiting, fevers, chills, and shortness of breath. She had stated that her symptoms had started with her feeling "achy" all over. She then developed shortness of breath with an intermittent dry cough and self reported fevers. She subsequently developed nausea and vomiting which was intractable and she was unable to eat or drink. She denied any recent sick contacts or travel. She did state that she was started on Methotrexate for Rheumatoid arthritis a 3 months ago. Additionally she had stated that she vapes CBD oil frequently as it has helped with her rheumatoid pain. She states that she has been self-isolating due to COVID. She had presented to Urgent Care and received rapid strep testing and rapid flu which was negative. She did receive a chest x-ray through Urgent care which demonstrated bilateral infiltrates. She was given a shot of Rocephin and she subsequently presented to the ER. HOSPITAL COURSE: At the ER the patient was found to be afebrile, slightly tachycardic with a HR of 103, and normotensive. Her oxygen saturation at the time was 97% on room air. During her time in the ER the patient started have desaturations and was placed on nasal cannula. A CT of the chest was performed due to increasing shortness of breath which demonstrated dense patchy infiltrates with a lower lung predominance and some scattered patchy infiltrated in the upper lobes. The patient was subsequently admitted for further evaluation and management On admission the patient was started on empiric antibiotics for multifocal pneumonia. On the following day of admission, the patient had developed worsening of her respiratory status. She became tachycardic, dyspneic with conversational dyspnea. She had complained of pleuritic type chest pain. A repeat chest X-ray at the time demonstrated progressive bilateral pneumonia with extensive infiltrates and a continued lower lung predominance. At the time methotrexate induced lung injury was felt unlikely due to the lower lobe predominance. The patient was COVID-19 negative. The patient continued to have increasing oxygen demands and was placed on High flow nasal cannula at 15L with an FiO2 of 60%. Patient remained stable. Pulmonary medicine was consulted with recommendations. It was felt that the patients illness was secondary to a vaping associate lung injury as she had recently started vaping CBD oil. The patient was placed on high dose steroids. She was continued on antibiotics as a bacterial pneumonia could not be completely ruled out. The patient had Procalcitonin which resulted unlikely of bacterial infection. The patient showed significant improvement in oxygenation and was weaned from 15L high flow nasal cannula to 2L nasal cannula. The patient was transitioned to PO antibiotics. She worked with physical therapy and was medically cleared for discharge. Patient was discharged with oral prednisone taper and instructions to follow-up with her [employer] and Primary Care Physician DISCHARGE MEDICATIONS: Please see below. ALLERGIES: Please see below. PHYSICAL EXAMINATION ON DISCHARGE: VITAL SIGNS: Please see below. GENERAL: Awake, alert, and oriented. Does not appear to be in acute distress. Sitting up comfortably on edge of bed HEENT: Atraumatic, normocephalic. Eyes are nonicteric. Trachea is midline NECK: No palpable cervical, axillary, or supraclavicular lymphadenopathy CARDIOVASCULAR EXAMINATION: Normal S1, S2. Regular rate and rhythm. No clicks, rubs or murmurs RESPIRATORY EXAMINATION: Clear vesicular breath sounds bilaterally. Good respiratory effort. No wheezes, rhonchi, or rales ABDOMINAL EXAMINATION: Soft, nondistended. Nontender. Normoactive bowel sounds throughout EXTREMITIES: No edema. Full and equal pulses in bilateral upper and lower extremities SKIN: No rashes or lesions NEUROLOGICAL EXAMINATION: No focal neurological deficits PSYCHIATRIC EXAMINATION: Mood and affect appear appropriate LABORATORY DATA: Please see below. IMAGING: CT CHEST WITHOUT IV CONTRAST: CT chest performed without IV contrast. Sagittal and coronal reconstruction images are performed. There are dense patchy infiltrates in both lower lobes. Lesser degree of scattered patchy infiltrates are seen in the upper lobes. Heart is not enlarged. There is no pericardial effusion. There appear to be very tiny pleural effusions. No gross mediastinal or axillary adenopathy is seen. There is no thoracic aortic aneurysm. Visualized upper abdominal structures are grossly unremarkable. IMPRESSION: Diffuse patchy infiltrates bilaterally, more significantly in the lower lobes. Electronically Signed by Conrad Irwin MD 01/17/2020 10:10 A HISTORY: Increased shortness of breath. COVID precautions. Comparison study January 15, 2020. FINDINGS: The previously noted bibasilar interstitial infiltrates have progressed in extent and opacity in the interval since the chest x-ray done 2 days prior consistent with progressive bilateral pneumonia. Cardiomediastinal silhouette is unchanged. Monitoring electrodes and oxygen delivery tubing are seen. IMPRESSION: Progressive bilateral pneumonia. Extensive infiltrates, lung base predominant. Electronically Signed by Jose Fowler MD 01/17/2020 09:12 A PROCEDURE INFORMATION: Exam: XR Chest, 1 View Exam date and time: 01/18/2020 12:29 AM Age: 34 years old Clinical indication: Other: SOB TECHNIQUE: Imaging protocol: XR of the chest Views: 1 view. COMPARISON: CA Chest, 1 view 01/17/2020 7:50 AM FINDINGS: Lungs: Increasing patchy opacities in the mid and lower lungs bilaterally consistent with significant interval worsening pneumonitis. Pleural space: No pleural effusion. No pneumothorax is seen. Heart/Mediastinum: Unremarkable. No cardiomegaly. Bones/joints: Unremarkable. IMPRESSION: Significant interval worsening of pneumonitis. Electronically signed by: Darlene Ervin On 01/18/2020 00:53:[address] ANGIOGRAM OF THE CHEST: TECHNIQUE: Axial contrast-enhanced images from the thoracic inlet to the upper abdomen using 100 mL Isovue-370 intravenous contrast material with multiplanar reformations. COMPARISON: CT 01/16/[address] evidence of pulmonary embolism. There is no thoracic aortic aneurysm or dissection. The heart is not enlarged. No pericardial effusion is seen. No significant adenopathy is seen. Dense bilateral diffuse infiltrates have increased since the prior study. There are tiny pleural effusions bilaterally. IMPRESSION: No pulmonary embolism. Worsening of dense diffuse bilateral infiltrates, particularly in the lower lobes. Tiny bilateral effusions. Electronically Signed by Conrad Iwrin MD 01/19/2020 10:11 A Clinical: Pneumonia. Comparison: 01/18/2020. Findings: Patchy bilateral lower lobe air space disease and possible small pleural reactions are identified, but significantly improved from prior examination. No pneumothorax. Cardiac silhouette is normal. Skeletal structures are intact. Impression: 1. Bilateral infiltrates improved from prior examination. Electronically Signed by Twan Escobedo MD 01/20/2020 07:20 A PROGNOSIS: GOOD ACTIVITY: [As tolerated]. DIET: As tolerated DISCHARGE PLAN: Patient is to be discharged home with follow-up with her PCP in 7-10 days. She is to continue her steroid taper. Once steroid taper is complete she may continue her chronic 5mg prednisone dosing. She is to STOP methotrexate until re-evaluated by PCP and [employer]. Patient was advised to avoid vaping. She was prescirbed albuterol inhaler as patient stated she had a history of asthma but has not had her inhaler filled. Recommendations for Spirometry pre/post bronchodilation and/or PFTs be completed in the outpatient setting to quantify patients asthma. Patient was in agreement with plan. DISPOSITION: Home, Self-Care. DISCHARGE CONDITION: [Stable]. TIME SPENT ON DISCHARGE: Greater than 40 minutes. Attending attestation: I evaluated and examined the patient in person; I discussed the care with Resident in detail and agree with the plan above. Vital Signs/I&Os Vital Signs Date Time Temp Pulse Resp B/P (MAP) Pulse Ox O2 Delivery O2 Flow Rate FiO2 01/22/20 10:00 97.9 93 19 133/58 (83) 95 Room Air 01/21/20 14:00 2.0 01/20/20 12:19 50 I&O- Last 24 Hours up to 6 AM 01/22/20 06:00 Intake Total 1030 ml Balance 1030 ml Laboratory Data Labs 24H Laboratory Tests 2 01/22/20 05:42: Nucleated Red Blood Cells % (auto) 0.2H, Anion Gap 7L, Glomerular Filtration Rate > 60.0, Calcium Level 8.7 CBC/BMP Laboratory Tests 01/22/20 05:42 Microbiology Microbiology 01/18/20 Coronavirus COVID-19 PCR ([facility]) - Final, Complete 01/17/20 Respiratory Virus Panel (PCR) ([facility]) - Final, Complete 01/16/20 Blood Culture - Final, Complete NO GROWTH AFTER 5 DAYS 01/16/20 Blood Culture - Final, Complete NO GROWTH AFTER 5 DAYS 01/16/20 Urine Culture - Final, Complete 01/16/20 Gram Stain - Final, Complete 01/16/20 Sputum Culture - Final, Complete Discharge Medications Scheduled Folic Acid (Folic Acid) 1 Mg Tablet, 1 MG PO DAILY, (Reported) Pantoprazole Sodium (Protonix) 40 Mg Granpkt.dr, 40 MG PO DAILY Prednisone (Prednisone) 5 Mg Tablet, 5 MG PO QPM Start After Tapering Dose. 5 mg PO QPM Prednisone (Prednisone) 10 Mg Tablet, 10 MG PO TAPER Take 5 tabs qd x3 days, then 4 tabs qd x3 days, then 3 tabs qd x3 days, then 2 tab qd x3 days, then 1 tab qd x3 days, stop Scheduled PRN Acetaminophen (Acetaminophen) 500 Mg Tablet, 500 MG PO Q4H PRN for PAIN, (Reported) Albuterol Sulfate (Ventolin Hfa) 18 Gm Hfa.aer.ad, 2 PUFF INH Q4-6HP PRN for wheezing Ibuprofen (Motrin Ib) 200 Mg Tab, 800 MG PO Q8HP PRN for MODERATE PAIN (PS 5-7), (Reported) Ondansetron HCl (Ondansetron HCl) 4 Mg Tablet, 4 MG PO Q8H PRN for NAUSEA OR VOMITING, (Reported) Allergies Coded Allergies: No Known Allergies (Verified , 05/08/15) NATACHA WOMACK DO Jan 22, 2020 16:37 SHANTE RICE MD Jan 24, 2020 00:21
== END 2020-01-22 12:19 | disposition home or self-care (01) | DRG 139 ==
LOC: M ED 09:06 → M ED INP 14:42 → ENRESERV 14:58 → M 4MAIN 17:27 → M PCU 01-17 11:26 → M 4MAIN 01-18 12:07 → M ICU 01-19 02:28 → M MSPAV 01-20 16:57
PROVIDERS: ADMIT Internal Medicine; ATTEND Internal Medicine
DX: J18.9 Pneumonia, unspecified organism (principal); J96.01 Acute respiratory failure with hypoxia; M06.9 Rheumatoid arthritis, unspecified; F17.290 Nicotine dependence, other tobacco product, uncomplicated; Z79.899 Other long term (current) drug therapy; J45.909 Unspecified asthma, uncomplicated; F41.9 Anxiety disorder, unspecified; F32.9 Major depressive disorder, single episode, unspecified; E87.6 Hypokalemia

== ENCOUNTER → 2020-02-03 | Outpatient (CLI) | payer OTHER ==
[~2020-02-03] MED LIST changes: +ACET-683 PO; +FOLI1TAB11 PO; +METH2.5T48 PO; +ONDA-83 PO; +POTA10TA17 PO; +PRED10TA2 PO; +PRED5TA PO; +PROTPAK PO; +VENTAER INH
[2020-02-03 16:30] LABS: ALBUMIN 3.3 GM/DL (3.2-5.2); ALT/SGPT 20 U/L (12-78); BILIRUBIN,TOTAL 0.5 MG/DL (0.2-1.0); BLOOD UREA NITROGEN 11 MG/DL (7-18); C REACTIVE PROTEIN QUANTITATIV < 0.30 MG/DL (0.00-0.30); CALCIUM LEVEL 9.5 MG/DL (8.5-10.1); CARBON DIOXIDE LEVEL 28 MEQ/L (21-32); CHLORIDE LEVEL 105 MEQ/L (98-107); CREATININE FOR GFR 0.78 MG/DL (0.55-1.30); GLOMERULAR FILTRATION RATE > 60.0 (>60); GLUCOSE, FASTING 96 MG/DL (70-100); POTASSIUM SERUM 4.4 MEQ/L (3.5-5.1); SODIUM LEVEL 140 MEQ/L (136-145); TOTAL PROTEIN 7.2 GM/DL (6.4-8.2)
[2020-02-03 16:39] LABS: BASO % 0.5 % (0.0-1.0); EOS % 0.3 % (0.0-3.0); HEMATOCRIT 39.3 % (36.0-47.0); HEMOGLOBIN 12.3 g/dl (12.0-15.5); LYMPH % 25.2 % (24.0-44.0); MEAN CORPUSCULAR HEMOGLOBIN 29.4 pg (27.0-33.0); MEAN CORPUSCULAR HGB CONC 31.3 g/dl (32.0-36.5); MEAN CORPUSCULAR VOLUME 93.8 fl (80.0-96.0); MONO # 0.7 10^3/uL (0.0-0.8); MONO % 8.7 % (0.0-5.0); NEUTROPHILS # 5.1 10^3/uL (1.5-8.5); PLATELET COUNT, AUTOMATED 440 10^3/uL (150-450); RED BLOOD COUNT 4.19 10^6/uL (4.00-5.40); WHITE BLOOD COUNT 7.9 10^3/uL (4.0-10.0)
[2020-02-03 17:50] LABS: ERYTHROCYTE SEDIMENTATION RATE 44 mm/hr (0-20)
== END ==
LOC: M PLALAB 13:16
PROVIDERS: ATTEND Internal Medicine
DX: M05.79 Rheumatoid arthritis with rheumatoid factor of multiple sites without organ or systems involvement (principal)

== ENCOUNTER → 2020-02-06 | Outpatient (CLI) | payer OTHER | LOC: M PLALAB 14:45 | PROVIDERS: ATTEND Internal Medicine Rheumatology | DX: J18.9 Pneumonia, unspecified organism (principal) ==

== ENCOUNTER → 2020-12-08 | Outpatient (CLI) | payer OTHER ==
--- NOTE | 2020-12-08 15:06 | REPMRS ---
Patient History The patient states she had a clinical breast exam in November 2020. Family history of breast cancer in maternal grandmother. Bilateral breast pain through out, a little worse on left. Patient signed the MRS sheet No covid vaccine Diagnostic Bilateral Mammo: December 08, 2020 - Exam #: [id number] Bilateral CC and MLO view(s) were taken. Technologist: Lorena Godinez, Technologist FINDINGS: The breast tissue is almost entirely fat. The Volpara volumetric breast density category is: A. There is no evidence of dominant mass, architectural distortion, or grouped microcalcification typical of malignancy. 3-D tomosynthesis shows no additional findings. Assessment: BI-RADS/ACR category 1 mammogram. Negative Mammogram. Recommendation Routine screening mammogram of both breasts in 1 year (for women over age 40). This patient's [facility] Lifetime Breast Cancer RIsk is estimated at 14.2 %. This mammogram was interpreted with the aid of an FDA-approved computer-aided dectection system. Electronically Signed By: Carlos Fowler MD 12/08/20 [id number]
--- NOTE | 2020-12-09 15:45 | REP ---
INDICATION: PAIN OF BOTH BREAST. COMPARISON: Comparison bilateral mammography November 2020.. TECHNIQUE: Bilateral whole breast sonography is performed. FINDINGS: Mildly heterogeneous fibroglandular background echotexture is seen bilaterally. No cyst, mass, acoustic shadowing or other significant finding is seen in either breast on ultrasound. IMPRESSION: BI-RADS category 1-findings. <Electronically signed by Carlos Fowler > 12/09/20 [id number]
== END ==
LOC: M WHC 14:16
PROVIDERS: ATTEND Family Medicine
DX: N64.4 Mastodynia (principal)
CPT/HCPCS: 76642; 77066; G0279

== ENCOUNTER → 2021-06-27 | Outpatient (REF) | payer OTHER | LOC: M LAB REF 19:28 | PROVIDERS: ATTEND Physician Assistant Medical | DX: R05.1 Acute cough (principal); R50.9 Fever, unspecified ==

== ENCOUNTER → 2023-03-02 | Outpatient (CLI) | payer OTHER ==
[~2023-03-02] MED LIST changes: +ALBU2.5V10 INH; -ALBU83IN INH; +POTA-150 PO; -POTA10TA17 PO
[2023-03-02 19:25] LABS: BASO % 0.3 % (0.0-1.0); EOS % 0.4 % (0.0-3.0); HEMATOCRIT 44.9 % (36.0-47.0); HEMOGLOBIN 14.2 g/dl (12.0-15.5); LYMPH # 1.9 10^3/uL (1.5-5.0); LYMPH % 26.7 % (24.0-44.0); MEAN CORPUSCULAR HEMOGLOBIN 28.9 pg (27.0-33.0); MEAN CORPUSCULAR HGB CONC 31.6 g/dl (32.0-36.5); MEAN CORPUSCULAR VOLUME 91.4 fl (80.0-96.0); MONO # 0.7 10^3/uL (0.0-0.8); MONO % 10.1 % (2.0-8.0); NEUTROPHILS # 4.5 10^3/uL (1.5-8.5); NEUTROPHILS % 62.4 % (36.0-66.0); PLATELET COUNT, AUTOMATED 315 10^3/uL (150-450); RED BLOOD COUNT 4.91 10^6/uL (4.00-5.40); WHITE BLOOD COUNT 7.3 10^3/uL (4.0-10.0)
[2023-03-02 19:51] LABS: ALBUMIN 3.6 G/DL (3.2-5.2); ALKALINE PHOSPHATASE 80 U/L (46-116); ALT/SGPT 15 U/L (7.0-40); AST/SGOT < 8 U/L (<34); BILIRUBIN,TOTAL 0.3 MG/DL (0.3-1.2); BLOOD UREA NITROGEN 9 MG/DL (9-23); CALCIUM LEVEL 9.1 MG/DL (8.5-10.1); CARBON DIOXIDE LEVEL 25 MMOL/L (20-31); CHLORIDE LEVEL 106 MMOL/L (98-107); CHOLESTEROL LEVEL 164 MG/DL (<200); CHOLESTEROL RISK RATIO 2.67 (<5); CREATININE FOR GFR 0.62 MG/DL (0.55-1.30); FREE T4 0.81 NG/DL (0.89-1.76); GLOMERULAR FILTRATION RATE > 60.0 (>60); GLUCOSE, FASTING 79 MG/DL (60-100); HDL CHOLESTEROL 61.2 MG/DL (>40); LDL CHOLESTEROL 81.2 MG/DL (<100); NON-HDL-C 102.8 MG/DL; POTASSIUM SERUM 4.2 MMOL/L (3.5-5.1); RHEUMATOID FACTOR QUANT 31.2 IU/ML (<14); SODIUM LEVEL 139 MMOL/L (136-145); THYROID STIMULATING HORMONE 1.796 uIU/ML (0.55-4.78); TOTAL PROTEIN 7.4 G/DL (5.7-8.2); TRIGLYCERIDES LEVEL 108 MG/DL (<150)
[2023-03-02 19:54] LABS: ERYTHROCYTE SEDIMENTATION RATE 55 mm/hr (0-20)
[2023-03-02 19:55] LABS: HEMOGLOBIN A1c 5.2 % (4.0-6.0)
[2023-03-04 23:07] LABS: ANA (HEP2) Positive (.); CYCLIC CITRULLINATED PEPTIDE > 250 units (0-19)
== END ==
LOC: M PLALAB 15:58
PROVIDERS: ATTEND Physician Assistant
DX: Z00.00 Encounter for general adult medical examination without abnormal findings (principal); M05.79 Rheumatoid arthritis with rheumatoid factor of multiple sites without organ or systems involvement; Z13.1 Encounter for screening for diabetes mellitus; Z13.220 Encounter for screening for lipoid disorders

== ENCOUNTER → 2023-03-05 | Outpatient (REF) | payer OTHER ==
[2023-03-05 17:49] LABS: APPEARANCE, URINE HAZY (CLEAR); BACTERIA, URINE AUTO NEGATIVE (NEGATIVE); BILIRUBIN, URINE AUTO NEGATIVE (NEGATIVE); BLOOD, URINE BLOOD 1+ (NEGATIVE); COLOR, URINE YELLOW (YELLOW); GLUCOSE, URINE (UA) AUTO NEGATIVE (NEGATIVE); KETONE, URINE AUTO NEGATIVE (NEGATIVE); LEUKOCYTE ESTERASE, URINE AUTO NEGATIVE (NEGATIVE); NITRITE, URINE AUTO NEGATIVE (NEGATIVE); PROTEIN, URINE AUTO NEGATIVE (NEGATIVE); RBC, URINE AUTO 0 /HPF (0-3); SPECIFIC GRAVITY URINE AUTO 1.021 (1.002-1.035); SQUAMOUS EPITHELIAL CELL UR AU 1 /HPF (0-6); UROBILINOGEN, URINE AUTO 0.2 mg/dL (0.0-2.0); WBC, URINE AUTO 0 /HPF (0-3)
== END ==
LOC: M LAB REF 17:32
PROVIDERS: ATTEND Physician Assistant Medical
DX: N39.0 Urinary tract infection, site not specified (principal)

== ENCOUNTER → 2023-10-05 | Outpatient (REF) | payer OTHER ==
[2023-10-05 16:51] LABS: BASO % 0.8 % (0.0-1.0); EOS % 0.6 % (0.0-3.0); HEMOGLOBIN 13.2 g/dl (12.0-15.5); LYMPH % 38.6 % (24.0-44.0); MEAN CORPUSCULAR HGB CONC 31.4 g/dl (32.0-36.5); MEAN CORPUSCULAR VOLUME 92.3 fl (80.0-96.0); MONO # 0.5 10^3/uL (0.0-0.8); MONO % 9.6 % (2.0-8.0); NEUTROPHILS # 2.7 10^3/uL (1.5-8.5); NEUTROPHILS % 50.2 % (36.0-66.0); PLATELET COUNT, AUTOMATED 338 10^3/uL (150-450); RED BLOOD COUNT 4.55 10^6/uL (4.00-5.40); WHITE BLOOD COUNT 5.3 10^3/uL (4.0-10.0)
[2023-10-05 16:58] LABS: ERYTHROCYTE SEDIMENTATION RATE 62 mm/hr (0-20)
[2023-10-05 17:22] LABS: IMMUNOGLOBULIN A 266.7 MG/DL (40-350)
[2023-10-05 17:23] LABS: ALBUMIN 3.7 G/DL (3.2-5.2); ALKALINE PHOSPHATASE 82 U/L (46-116); ALT/SGPT 15 U/L (7.0-40); AST/SGOT 15 U/L (<34); BILIRUBIN,TOTAL 0.3 MG/DL (0.3-1.2); BLOOD UREA NITROGEN 9 MG/DL (9-23); CALCIUM LEVEL 8.9 MG/DL (8.5-10.1); CARBON DIOXIDE LEVEL 24 MMOL/L (20-31); CHLORIDE LEVEL 108 MMOL/L (98-107); COMPLEMENT C3 130.9 MG/DL (90.0-170.0); COMPLEMENT C4 27.9 MG/DL (12-36); CREATININE FOR GFR 0.58 MG/DL (0.55-1.30); GLOMERULAR FILTRATION RATE > 60.0 (>58); GLUCOSE, FASTING 79 MG/DL (60-100); IMMUNOGLOBULIN G 1674 MG/DL (650-1600); SODIUM LEVEL 139 MMOL/L (136-145); TOTAL PROTEIN 7.2 G/DL (5.7-8.2)
[2023-10-05 18:02] LABS: HEPATITIS B CORE ANTIBODY IGM NEGATIVE (NEGATIVE)
[2023-10-05 18:03] LABS: HEPATITIS C VIRUS ABY INDEX < 0.02 INDEX (<0.8)
== END ==
LOC: M SFHCRHEU 13:15
PROVIDERS: ATTEND Internal Medicine Rheumatology
DX: M05.79 Rheumatoid arthritis with rheumatoid factor of multiple sites without organ or systems involvement (principal); R76.8 Other specified abnormal immunological findings in serum; Z79.60 Long term (current) use of unspecified immunomodulators and immunosuppressants

== ENCOUNTER → 2023-12-06 | Outpatient (CLI) | payer OTHER ==
[2023-12-06 16:01] LABS: BASO # 0.1 10^3/uL (0.0-0.2); EOS # 0.1 10^3/uL (0.0-0.5); HEMATOCRIT 41.2 % (36.0-47.0); HEMOGLOBIN 12.9 g/dl (12.0-15.5); LYMPH # 2.6 10^3/uL (1.5-5.0); LYMPH % 44.8 % (24.0-44.0); MEAN CORPUSCULAR HEMOGLOBIN 28.9 pg (27.0-33.0); MEAN CORPUSCULAR HGB CONC 31.3 g/dl (32.0-36.5); MEAN CORPUSCULAR VOLUME 92.4 fl (80.0-96.0); MONO # 0.7 10^3/uL (0.0-0.8); MONO % 11.8 % (2.0-8.0); NEUTROPHILS # 2.4 10^3/uL (1.5-8.5); NEUTROPHILS % 41.2 % (36.0-66.0); PLATELET COUNT, AUTOMATED 268 10^3/uL (150-450); RED BLOOD COUNT 4.46 10^6/uL (4.00-5.40); WHITE BLOOD COUNT 5.8 10^3/uL (4.0-10.0)
[2023-12-06 16:02] LABS: ALBUMIN 3.5 G/DL (3.2-5.2); ALKALINE PHOSPHATASE 72 U/L (46-116); ALT/SGPT 19 U/L (7.0-40); AST/SGOT 17 U/L (<34); BILIRUBIN,TOTAL 0.3 MG/DL (0.3-1.2); BLOOD UREA NITROGEN 11 MG/DL (9-23); CALCIUM LEVEL 9.2 MG/DL (8.5-10.1); CARBON DIOXIDE LEVEL 28 MMOL/L (20-31); CHLORIDE LEVEL 108 MMOL/L (98-107); GLOMERULAR FILTRATION RATE > 60.0 (>58); GLUCOSE, FASTING 82 MG/DL (60-100); POTASSIUM SERUM 3.7 MMOL/L (3.5-5.1); SODIUM LEVEL 140 MMOL/L (136-145); TOTAL PROTEIN 6.7 G/DL (5.7-8.2)
[2023-12-06 16:14] LABS: ERYTHROCYTE SEDIMENTATION RATE 20 mm/hr (0-20)
== END ==
LOC: M PLALAB 11:52
PROVIDERS: ATTEND Internal Medicine Rheumatology
DX: M05.79 Rheumatoid arthritis with rheumatoid factor of multiple sites without organ or systems involvement (principal); R76.8 Other specified abnormal immunological findings in serum; Z79.60 Long term (current) use of unspecified immunomodulators and immunosuppressants

== ENCOUNTER → 2023-12-07 | Outpatient (CLI) | payer OTHER ==
[2023-12-07 15:40] LABS: BASO % 0.5 % (0.0-1.0); EOS % 0.3 % (0.0-3.0); HEMATOCRIT 42.3 % (36.0-47.0); HEMOGLOBIN 13.3 g/dl (12.0-15.5); LYMPH # 1.6 10^3/uL (1.5-5.0); LYMPH % 24.4 % (24.0-44.0); MEAN CORPUSCULAR HGB CONC 31.4 g/dl (32.0-36.5); MEAN CORPUSCULAR VOLUME 92.2 fl (80.0-96.0); MONO # 0.5 10^3/uL (0.0-0.8); MONO % 7.5 % (2.0-8.0); NEUTROPHILS # 4.4 10^3/uL (1.5-8.5); NEUTROPHILS % 67.1 % (36.0-66.0); PLATELET COUNT, AUTOMATED 270 10^3/uL (150-450); RED BLOOD COUNT 4.59 10^6/uL (4.00-5.40); WHITE BLOOD COUNT 6.6 10^3/uL (4.0-10.0)
[2023-12-07 15:49] LABS: ERYTHROCYTE SEDIMENTATION RATE 26 mm/hr (0-20)
[2023-12-07 16:26] LABS: ALBUMIN 3.4 G/DL (3.2-5.2); ALKALINE PHOSPHATASE 72 U/L (46-116); ALT/SGPT 15 U/L (7.0-40); AST/SGOT 19 U/L (<34); BILIRUBIN,TOTAL 0.2 MG/DL (0.3-1.2); BLOOD UREA NITROGEN 11 MG/DL (9-23); CALCIUM LEVEL 9.5 MG/DL (8.5-10.1); CARBON DIOXIDE LEVEL 27 MMOL/L (20-31); CHLORIDE LEVEL 109 MMOL/L (98-107); CREATININE FOR GFR 0.59 MG/DL (0.55-1.30); FOLATE 21.2 NG/ML (>5.4); GLOMERULAR FILTRATION RATE > 60.0 (>58); GLUCOSE, FASTING 83 MG/DL (60-100); POTASSIUM SERUM 4.5 MMOL/L (3.5-5.1); SODIUM LEVEL 139 MMOL/L (136-145); VITAMIN B12 LEVEL 498 PG/ML (211-911)
== END ==
LOC: M PLALAB 11:39
PROVIDERS: ATTEND Physician Assistant
DX: M05.79 Rheumatoid arthritis with rheumatoid factor of multiple sites without organ or systems involvement (principal)

== ENCOUNTER → 2023-12-07 | Outpatient (CLI) | payer OTHER | LOC: M PLAIMG 11:40 | PROVIDERS: ATTEND Internal Medicine Rheumatology | DX: M05.79 Rheumatoid arthritis with rheumatoid factor of multiple sites without organ or systems involvement (principal); R76.8 Other specified abnormal immunological findings in serum; Z79.60 Long term (current) use of unspecified immunomodulators and immunosuppressants; M19.071 Primary osteoarthritis, right ankle and foot; M19.072 Primary osteoarthritis, left ankle and foot; M85.841 Other specified disorders of bone density and structure, right hand; M85.842 Other specified disorders of bone density and structure, left hand; M46.1 Sacroiliitis, not elsewhere classified ==

== ENCOUNTER → 2024-01-10 | Outpatient (CLI) | payer OTHER | LOC: M PLAIMG 08:54 | PROVIDERS: ATTEND Internal Medicine Rheumatology | DX: M47.818 Spondylosis without myelopathy or radiculopathy, sacral and sacrococcygeal region (principal) ==

== ENCOUNTER → 2024-05-02 | Outpatient (CLI) | payer OTHER | LOC: M WHC 11:52 | PROVIDERS: ATTEND Physician Assistant | DX: R18.8 Other ascites (principal); N83.201 Unspecified ovarian cyst, right side; N88.8 Other specified noninflammatory disorders of cervix uteri ==

== ENCOUNTER → 2024-05-31 | Outpatient (REF) | payer OTHER ==
[2024-05-31 16:26] LABS: BASO % 0.5 % (0.0-1.0); HEMATOCRIT 42.5 % (36.0-47.0); HEMOGLOBIN 13.4 g/dl (12.0-15.5); LYMPH # 1.5 10^3/uL (1.5-5.0); LYMPH % 40.5 % (24.0-44.0); MEAN CORPUSCULAR HEMOGLOBIN 29.6 pg (27.0-33.0); MEAN CORPUSCULAR HGB CONC 31.5 g/dl (32.0-36.5); MEAN CORPUSCULAR VOLUME 93.8 fl (80.0-96.0); MONO # 0.5 10^3/uL (0.0-0.8); MONO % 13.7 % (2.0-8.0); NEUTROPHILS # 1.7 10^3/uL (1.5-8.5); NEUTROPHILS % 45.3 % (36.0-66.0); PLATELET COUNT, AUTOMATED 259 10^3/uL (150-450); RED BLOOD COUNT 4.53 10^6/uL (4.00-5.40); WHITE BLOOD COUNT 3.7 10^3/uL (4.0-10.0)
[2024-05-31 16:33] LABS: ALBUMIN 3.7 G/DL (3.2-5.2); ALKALINE PHOSPHATASE 98 U/L (46-116); ALT/SGPT 31 U/L (7.0-40); AST/SGOT 25 U/L (<34); BILIRUBIN,TOTAL 0.4 MG/DL (0.3-1.2); BLOOD UREA NITROGEN 9 MG/DL (9-23); CALCIUM LEVEL 8.9 MG/DL (8.5-10.1); CARBON DIOXIDE LEVEL 26 MMOL/L (20-31); CHLORIDE LEVEL 112 MMOL/L (98-107); CREATININE FOR GFR 0.57 MG/DL (0.55-1.30); GLOMERULAR FILTRATION RATE > 60.0 (>58); GLUCOSE, FASTING 98 MG/DL (60-100); POTASSIUM SERUM 3.9 MMOL/L (3.5-5.1); SODIUM LEVEL 140 MMOL/L (136-145); TOTAL PROTEIN 7.5 G/DL (5.7-8.2)
[2024-05-31 16:46] LABS: ERYTHROCYTE SEDIMENTATION RATE 26 mm/hr (0-20)
== END ==
LOC: M SFHCRHEU 09:05
PROVIDERS: ATTEND Internal Medicine Rheumatology
DX: M05.79 Rheumatoid arthritis with rheumatoid factor of multiple sites without organ or systems involvement (principal); R76.8 Other specified abnormal immunological findings in serum; Z79.60 Long term (current) use of unspecified immunomodulators and immunosuppressants; M47.818 Spondylosis without myelopathy or radiculopathy, sacral and sacrococcygeal region

== ENCOUNTER → 2024-09-11 | Outpatient (CLI) | payer OTHER | LOC: M WHC 12:54 | PROVIDERS: ATTEND Nurse Practitioner Family | DX: Z12.31 Encounter for screening mammogram for malignant neoplasm of breast (principal) ==

== ENCOUNTER → 2024-09-11 | Outpatient (CLI) | payer OTHER ==
[2024-09-11 19:27] LABS: Trichomonas vaginalis (AMP) NOT DETECTED (NEGATIVE)
[2024-09-11 19:31] LABS: HEPATITIS B SURFACE ANTIGEN NEGATIVE (NEGATIVE)
[2024-09-11 19:44] LABS: HIV 1&2 SCREEN NEGATIVE (NEGATIVE)
[2024-09-11 19:51] LABS: GC DNA AMPLIFICATION NEGATIVE (NEGATIVE)
[2024-09-11 19:51] LABS: HEPATITIS C VIRUS ABY INDEX < 0.02 INDEX (<0.8)
[2024-09-11 19:52] LABS: HEPATITIS B CORE ANTIBODY IGM NEGATIVE (NEGATIVE)
[2024-09-11 21:00] LABS: GC DNA AMPLIFICATION NEGATIVE (NEGATIVE)
== END ==
LOC: M PLALAB 13:58
PROVIDERS: ATTEND Nurse Practitioner Family
DX: Z12.4 Encounter for screening for malignant neoplasm of cervix (principal); Z11.3 Encounter for screening for infections with a predominantly sexual mode of transmission

== ENCOUNTER → 2025-05-26 | Outpatient (REF) | payer OTHER ==
[2025-05-26 15:37] LABS: BASO # 0.0 10^3/uL (0.0-0.2); BASO % 1.0 % (0.0-1.0); EOS # 0.0 10^3/uL (0.0-0.5); EOS % 0.2 % (0.0-3.0); LYMPH # 1.4 10^3/uL (1.5-5.0); LYMPH % 33.1 % (24.0-44.0); MONO # 0.7 10^3/uL (0.0-0.8); MONO % 16.3 % (2.0-8.0); NEUTROPHILS # 2.1 10^3/uL (1.5-8.5); NEUTROPHILS % 49.4 % (36.0-66.0); PLATELET COUNT, AUTOMATED 274 10^3/uL (150-450)
[2025-05-26 16:07] LABS: C REACTIVE PROTEIN QUANTITATIV < 0.50 MG/DL (<1.0)
[2025-05-26 16:11] LABS: ALT/SGPT 22 U/L (7.0-40); AST/SGOT 25 U/L (<34); CALCIUM LEVEL 9.1 MG/DL (8.5-10.1); CARBON DIOXIDE LEVEL 23 MMOL/L (20-31); CHLORIDE LEVEL 107 MMOL/L (98-107); CREATININE FOR GFR 0.64 MG/DL (0.55-1.30); GLOMERULAR FILTRATION RATE > 90.0 (>58); POTASSIUM SERUM 3.9 MMOL/L (3.5-5.1); SODIUM LEVEL 143 MMOL/L (136-145)
== END ==
LOC: M SFHCRHEU 08:37
PROVIDERS: ATTEND Internal Medicine Rheumatology
DX: M05.79 Rheumatoid arthritis with rheumatoid factor of multiple sites without organ or systems involvement (principal); M47.818 Spondylosis without myelopathy or radiculopathy, sacral and sacrococcygeal region; Z79.60 Long term (current) use of unspecified immunomodulators and immunosuppressants